=== PATIENT | female | born 1995 | race Caucasian/White ===

== ENCOUNTER 2017-01-11 11:59 | Emergency (ER) | payer OTHER ==
[2017-01-11] MEDS ORDERED: ACETAMINOPHEN TAB 500 MG TAB PO STA (14:01)
[2017-01-11] MEDS ORDERED: HYDROmorphone 1 MG/ML 1 ML SYRINGE IM STA ×2 (14:01→15:20)
[2017-01-11 14:33] VITALS: RESP 18
[2017-01-11 15:00] LABS: Appearance,Urine Cloudy (Clear); Bacteria,Urine Few /hpf; Bilirubin,Urine 1+ (Negative); Glucose,Urine (UA) Negative (Negative); Ketones,Urine 1+ (Negative); Leukocyte Esterase,Urine Negative (Negative); Mucus,Urine Moderate /hpf; Nitrite,Urine Negative (Negative); PH, Urine 5.5 (5.0-8.0); Particle Count 16743; Protein,Urine 1+ (Negative); Specific Gravity,Urine 1.022 (1.001-1.035); Squamous Epithelial Cell,Urine 15 /hpf (0-4); UA Billing (MACRO vs. MICRO) MICRO; WBC,Urine 6 /hpf (0-5)
[2017-01-11] MEDS ORDERED: SULFAMETH-TMP DS STARTER PACK 2 TAB BTL PO STA (15:24)
--- NOTE | 2017-01-11 15:34 | ED ---
Skin/Abscess/FB HPI - General Chief complaint: Skin/Abscess/Foreign Body Stated complaint: Cyst on Tailbone/Infection Time Seen by Provider: 01/11/17 14:01 Source: patient, RN notes reviewed Mode of arrival: wheelchair Limitations: no limitations - History of Present Illness Initial comments: Patient is a 21 year old female with an abscess on her tailbone for approximately 10 days. She reports she was seen at [facility] 5 days ago and placed on Keflex for the infection, no drainage done at that time. Patient reports that the pain has been worsening and seems that the infection is spreading. She reports she cannot sit down due to the pain and pressure. She reports it started at 2 firm cysts, and now has progressed to a large abscess. She has been doing epsom salt baths. She states that she has felt chilled. She states that she also has noticed some blood in her urine which she believes is unrelated. She denies vomiting, nausea, chest pain shortness of breath. She has never had a history of MRSA or pilionidal cyst before. Patient was crying due to pain while interviewing and examining the patient. - Related Data Previous Rx's Medication Instructions Recorded Ibuprofen [Motrin] 600 mg PO Q6HR PRN #40 day 09/06/16 Metoclopramide HCl [Reglan] 10 mg PO Q6HR PRN #5 day 09/06/16 HYDROcodone/APAP 10-325MG [[place] 1 tab PO Q6H PRN #20 tab 01/11/17 10-325] Ondansetron Odt [Zofran Odt] 4 mg PO Q12HR PRN #12 tab 01/11/17 Sulfamethox-Tmp 800-160Mg [Bactrim 2 tab PO Q12HR 14 Days 01/11/17 DS 800-160 mg] Allergies Allergy/AdvReac Type Severity Reaction Status Date / Time pineapple Allergy Anaphylaxis Verified 01/11/17 12:25 Review of Systems ROS Statement: Those systems with pertinent positive or pertinent negative responses have been documented in the HPI. ROS Other: All systems not noted in ROS Statement are negative. Past Medical History Past Medical History: Asthma History of Any Multi-Drug Resistant Organisms: None Reported Past Surgical History: Adenoidectomy, Ear Surgery, Tonsillectomy Past Psychological History: No Psychological Hx Reported Smoking Status: Former smoker Past Alcohol Use History: None Reported Past Drug Use History: Marijuana - Past Family History Mother Family Medical History: Asthma (Mother's 51-year-old has history of asthma) Additional Family Medical History / Comment(s): cholecystectomy Father Family Medical History: No Reported History (Father is 52-year-old has no major medical problems) Brother(s) Family Medical History: No Reported History (Patient has one brother no major medical problems) Sister(s) Family Medical History: Unable to Obtain (Patient has 2 sisters does not know anything about them.) General Exam - General Exam Comments Initial Comments: 21 year old female in moderate distress and discomfort. Limitations: no limitations General appearance: alert, in no apparent distress Head exam: Present: atraumatic, normocephalic, normal inspection Eye exam: Present: normal appearance, PERRL, EOMI. Absent: scleral icterus, conjunctival injection, periorbital swelling ENT exam: Present: normal exam, mucous membranes moist Neck exam: Present: normal inspection. Absent: tenderness, meningismus, lymphadenopathy Respiratory exam: Present: normal lung sounds bilaterally. Absent: respiratory distress, wheezes, rales, rhonchi, stridor Cardiovascular Exam: Present: regular rate, normal rhythm, normal heart sounds. Absent: systolic murmur, diastolic murmur, rubs, gallop, clicks GI/Abdominal exam: Present: soft, normal bowel sounds. Absent: distended, tenderness, guarding, rebound, rigid Extremities exam: Present: normal inspection, full ROM, normal capillary refill. Absent: tenderness, pedal edema, joint swelling, calf tenderness Back exam: Present: normal inspection, other (evidece of pilionidal abscess meauring 6cm by 6cm. ) Neurological exam: Present: alert, oriented X3, CN II-XII intact Psychiatric exam: Present: normal affect, normal mood Skin exam: Present: warm, dry, intact, normal color. Absent: rash Course Vital Signs 01/11/17 01/11/17 01/11/17 12:21 14:32 15:52 Temperature 99.2 F 99.5 F 98.8 F Pulse Rate 107 H 93 95 Respiratory 20 18 18 Rate Blood Pressure 134/69 116/76 101/64 O2 Sat by Pulse 99 99 96 Oximetry Procedures - Incision & Drainage Consent Obtained: verbal consent Time Out Performed?: Yes Site: back (pilionidal cyst above gluteal cleft. ) Size (cm): 6 Anesthetic Used: benzocaine 0.25% Amount (mLs): 10 I&D Cleaning Method: Betadine Sterile Field Used?: Yes Scalpel Used: #11 I&D Drainage Obtained: Pus (20-30cc of puss), Blood Packing: Iodoform Culture Obtained?: Yes Complications: pain Patient Tolerated Procedure: well (patient had significant pain with removing pus, but tolerated procedure well. ), no complications Medical Decision Making - Medical Decision Making Patient is a 21 year old female with an abscess on her tailbone for approximately 10 days. She reports she was seen at [facility] 5 days ago and placed on Keflex for the infection, no drainage done at that time. Patient reports that the pain has been worsening and seems that the infection is spreading. She reports she cannot sit down due to the pain and pressure. She reports it started at 2 firm cysts, and now has progressed to a large abscess. Patient was crying due to pain, patient given 1mg dilaudid IM. Patient only laying on stomach as she cannot sit down due to pain. Abscess measures 6cm by 6cm, it was cleaned and 2cm incision placed to drain infection. Significant amount of green and brown pus came from the area. Wound was explored and 1 inch iodoform packing was placed. Wound culture obtained. Patient will be swiched from keflex to bactrim DS 2 pills, BID for 2 weeks. Patient reports she has a follow up with a business development specialist on Monday[facility] The abscess and infection could not wait until then. Patient advised to follow up with PCP to recheck wound and change packing in 2 days. I advised to return to the emergency department for wound recheck in 2 days, and repack if PCP cannot. Patient understands return parameters and treatment plan discussed. Patient also given Rx for [place] for pain, and Zofran for nausea medication with the pain medicine. - Lab Data Lab Results 01/11/17 Range/Units 14:37 Urine Color [place] Urine Appearance Cloudy H (Clear) Urine pH 5.5 (5.0-8.0) Ur Specific [place] 1.022 (1.001-1.035) Urine Protein 1+ H (Negative) Urine Glucose (UA) Negative (Negative) Urine Ketones 1+ H (Negative) Urine Blood Negative (Negative) Urine Nitrite Negative (Negative) Urine Bilirubin 1+ H (Negative) Urine Urobilinogen 6.0 (<2.0) mg/dL Ur Leukocyte Esterase Negative (Negative) Urine WBC 6 H (0-5) /hpf Ur Squamous Epith Cells 15 H (0-4) /hpf Urine Bacteria Few H (None) /hpf Urine Mucus Moderate H (None) /hpf Disposition Clinical Impression: Pilonidal cyst with abscess Disposition: HOME SELF-CARE Condition: Good Instructions: Abscess Incision and Drainage (ED) Additional Instructions: Patient must follow-up with primary care provider in 2 days to have the packing re-changed. Take antibiotics as prescribed. Patient also advised to take pain medication as prescribed. Patient is to return to emergency department if any alarming signs or symptoms occur. is still advised to follow-up with the business development specialist on Monday. Prescriptions: HYDROcodone/APAP 10-325MG [[place] 10-325] 1 tab PO Q6H PRN #20 tab PRN Reason: Pain Ondansetron Odt [Zofran Odt] 4 mg PO Q12HR PRN #12 tab PRN Reason: Nausea Sulfamethox-Tmp 800-160Mg [Bactrim DS 800-160 mg] 2 tab PO Q12HR 14 Days Referrals: Geo De Oliveira MD [Primary Care Provider] - 1-2 days Time of Disposition: 15:35
[2017-01-11 15:52] VITALS: BP 101/64; PULSE 95; TEMP 98.8
== END 2017-01-11 16:01 | disposition home or self-care (01) ==
LOC: EC 11:59
DX: L05.01 Pilonidal cyst with abscess (principal); R31.9 Hematuria, unspecified; Z87.891 Personal history of nicotine dependence; Z91.018 Allergy to other foods
CPT/HCPCS: 99283 ×2; 96372 ×3; 10080 ×2; 81001; 87070; 87205; 87077; 87186; J1170

== ENCOUNTER 2017-01-13 13:07 | Emergency (ER) | payer OTHER ==
[2017-01-13 13:16] VITALS: BP 119/70; PULSE 109; RESP 20; TEMP 97.8
--- NOTE | 2017-01-13 13:51 | ED ---
Recheck HPI - General Chief Complaint: Recheck/Abnormal Lab/Rx Stated Complaint: needs gauze changed Time Seen by Provider: 01/13/17 13:11 Source: patient, RN notes reviewed, old records reviewed Mode of arrival: ambulatory Limitations: no limitations - History of Present Illness Initial Comments: Patient is a 21-year-old female history of pilonidal abscess presents emergency department needing her wound change. As the provider that due to the initial incision and drainage for the wound. At that time there was a significant amount of pus and the wound was packed. Patient reports that after taking the 2 days of antibiotics her swelling and the redness is decreased significantly. She also reports that the pain is somewhat subsided. She is taking the prescribed pain medications from earlier. Patient reports that she does have a follow-up appointment on Monday with a surgical services coordinator. Denies any fever or chills. She reports that she is able to sit down at this time.Patient denies any recent fever, chills, shortness of breath, chest pain, back pain, abdominal pain, nausea vomiting, numbness or tingling, dysuria or hematuria, constipation or diarrhea, headaches or visual changes, or any other current symptoms - Related Data Previous Rx's Medication Instructions Recorded Ibuprofen [Motrin] 600 mg PO Q6HR PRN #40 day 09/06/16 Metoclopramide HCl [Reglan] 10 mg PO Q6HR PRN #5 day 09/06/16 HYDROcodone/APAP 10-325MG [[place] 1 tab PO Q6H PRN #20 tab 01/11/17 10-325] Ondansetron Odt [Zofran Odt] 4 mg PO Q12HR PRN #12 tab 01/11/17 Sulfamethox-Tmp 800-160Mg [Bactrim 2 tab PO Q12HR 14 Days 01/11/17 DS 800-160 mg] Allergies Allergy/AdvReac Type Severity Reaction Status Date / Time pineapple Allergy Anaphylaxis Verified 01/13/17 13:19 Review of Systems ROS Statement: Those systems with pertinent positive or pertinent negative responses have been documented in the HPI. ROS Other: All systems not noted in ROS Statement are negative. Past Medical History Past Medical History: Asthma History of Any Multi-Drug Resistant Organisms: None Reported Past Surgical History: Adenoidectomy, Ear Surgery, Tonsillectomy Past Psychological History: No Psychological Hx Reported Smoking Status: Former smoker Past Alcohol Use History: None Reported Past Drug Use History: Marijuana - Past Family History Mother Family Medical History: Asthma (Mother's 51-year-old has history of asthma) Additional Family Medical History / Comment(s): cholecystectomy Father Family Medical History: No Reported History (Father is 52-year-old has no major medical problems) Brother(s) Family Medical History: No Reported History (Patient has one brother no major medical problems) Sister(s) Family Medical History: Unable to Obtain (Patient has 2 sisters does not know anything about them.) General Exam - General Exam Comments Initial Comments: Patient is a pleasant 21-year-old female. No acute distress. Limitations: no limitations General appearance: alert, in no apparent distress Head exam: Present: atraumatic, normocephalic, normal inspection Eye exam: Present: normal appearance, PERRL, EOMI. Absent: scleral icterus, conjunctival injection, periorbital swelling ENT exam: Present: normal exam, mucous membranes moist Neck exam: Present: normal inspection. Absent: tenderness, meningismus, lymphadenopathy Respiratory exam: Present: normal lung sounds bilaterally. Absent: respiratory distress, wheezes, rales, rhonchi, stridor Cardiovascular Exam: Present: regular rate, normal rhythm, normal heart sounds. Absent: systolic murmur, diastolic murmur, rubs, gallop, clicks GI/Abdominal exam: Present: soft, normal bowel sounds. Absent: distended, tenderness, guarding, rebound, rigid Extremities exam: Present: normal inspection, full ROM, normal capillary refill. Absent: tenderness, pedal edema, joint swelling, calf tenderness Back exam: Present: normal inspection, other (Plan I will abscess with evidence of recent drainage with packing instilled. The area of erythema has decreased significantly from 2 days ago.) Neurological exam: Present: alert, oriented X3, CN II-XII intact Psychiatric exam: Present: normal affect, normal mood Skin exam: Present: warm, dry, intact, normal color. Absent: rash Course Vital Signs 01/13/17 13:14 Temperature 97.8 F Pulse Rate 109 H Respiratory 20 Rate Blood Pressure 119/70 O2 Sat by Pulse 96 Oximetry Medical Decision Making - Medical Decision Making Patient is a 21-year-old female with chief complaint of needing her packing change in her pill nidal abscess. The packing was removed and the area was flushed with normal saline. The wound does appear much better than the initial visit. The wound is repacked with 1 inch iodoform. I had a lengthy discussion that she has to follow-up with the surgical services coordinator that she may need to have surgery to have the area did Monday. Patient is continuing her antibiotics and pain medications as prescribed. Patient understands treatment plan will comply. Return parameters were discussed. Disposition Clinical Impression: Pilonidal cyst with abscess, Encounter for wound re-check Disposition: HOME SELF-CARE Condition: Good Instructions: Abscess Incision and Drainage (ED) Additional Instructions: Patient instructed to follow-up with primary care provider. Also needs to follow-up with the surgical services coordinator on Monday for packing change. Return to the emergency department if any worsening signs or symptoms occur.. Patient is encouraged to take pain medication as needed as well as finishing her antibiotic. Referrals: Geo De Oliveira MD [Primary Care Provider] - 1-2 days Time of Disposition: 13:50
== END 2017-01-13 14:05 | disposition home or self-care (01) ==
LOC: EC 13:07
DX: L05.01 Pilonidal cyst with abscess (principal); Z48.01 Encounter for change or removal of surgical wound dressing; Z91.018 Allergy to other foods
CPT/HCPCS: 99283

== ENCOUNTER 2017-04-17 08:38 | Emergency (ER) | payer OTHER ==
[2017-04-17 08:43] VITALS: BP 120/70; TEMP 99.5
--- NOTE | 2017-04-17 08:53 | ED ---
Wound/Laceration HPI - General Chief Complaint: Wound/Laceration Stated Complaint: post op incision open Time Seen by Provider: 04/17/17 08:44 Source: patient, RN notes reviewed Mode of arrival: ambulatory Limitations: no limitations - History of Present Illness Initial Comments: 22-year-old female presents emergency Department with chief complaint of opening over her surgical site. Patient states she had surgery one month ago a Dr. Quinones for pilonaodal cyst. Patient states over the last week she's noticed increased pressure some discomfort. She felt some drainage in which her mother looked and saw that her incision had opened up and the lower half and is draining purulent pus. Patient denies fever or chills. She does complain of pain in that area which is similar to her history. Patient has nausea vomiting diarrhea constipation. Denies chance . - Related Data Previous Rx's Medication Instructions Recorded Ibuprofen [Motrin] 600 mg PO Q6HR PRN #40 day 09/06/16 Metoclopramide HCl [Reglan] 10 mg PO Q6HR PRN #5 day 09/06/16 HYDROcodone/APAP 10-325MG [[place] 1 tab PO Q6H PRN #20 tab 01/11/17 10-325] Ondansetron Odt [Zofran Odt] 4 mg PO Q12HR PRN #12 tab 01/11/17 Sulfamethox-Tmp 800-160Mg [Bactrim 2 tab PO Q12HR 14 Days 01/11/17 DS 800-160 mg] Hydrocodone/Acetaminophen [[place] 1 tab PO Q6HR PRN #20 tab 04/17/17 5-325] Sulfamethox-Tmp 800-160Mg [Bactrim 2 each PO Q12HR #56 tab 04/17/17 Ds] Allergies Allergy/AdvReac Type Severity Reaction Status Date / Time pineapple Allergy Anaphylaxis Verified 01/13/17 13:19 Review of Systems ROS Statement: Those systems with pertinent positive or pertinent negative responses have been documented in the HPI. ROS Other: All systems not noted in ROS Statement are negative. Past Medical History Past Medical History: Asthma History of Any Multi-Drug Resistant Organisms: None Reported Past Surgical History: Adenoidectomy, Ear Surgery, Tonsillectomy Past Psychological History: No Psychological Hx Reported Smoking Status: Former smoker Past Alcohol Use History: None Reported Past Drug Use History: Marijuana - Past Family History Mother Family Medical History: Asthma (Mother's 51-year-old has history of asthma) Additional Family Medical History / Comment(s): cholecystectomy Father Family Medical History: No Reported History (Father is 52-year-old has no major medical problems) Brother(s) Family Medical History: No Reported History (Patient has one brother no major medical problems) Sister(s) Family Medical History: Unable to Obtain (Patient has 2 sisters does not know anything about them.) General Exam Limitations: no limitations General appearance: alert, in no apparent distress Respiratory exam: Present: normal lung sounds bilaterally. Absent: respiratory distress, wheezes, rales, rhonchi, stridor Cardiovascular Exam: Present: regular rate, normal rhythm, normal heart sounds. Absent: systolic murmur, diastolic murmur, rubs, gallop, clicks GI/Abdominal exam: Present: soft, normal bowel sounds. Absent: distended, tenderness, guarding, rebound, rigid Skin exam: Present: other (The buttocks region just superior to the cleft there is an old incision noted with dehiscence in the lower half and purulent drainage , wound culture was taken) Course Vital Signs 04/17/17 08:40 Temperature 99.5 F Pulse Rate 120 H Respiratory 20 Rate Blood Pressure 120/70 O2 Sat by Pulse 97 Oximetry Medical Decision Making - Medical Decision Making 22-year-old female presented for pain and nurse's incision opening. This appears to be an infection with purulent drainage at this time. This was cultured and she'll be placed on Bactrim. Patient is advised that she is contact Dr. Quinones her surgeon today and follow-up with her. Return parameters were discussed. Disposition Clinical Impression: Infected wound, Pilonidal abscess Disposition: HOME SELF-CARE Condition: Stable Instructions: Abscess (ED) Additional Instructions: Please return to the Emergency Department if symptoms worsen or any other concerns. Prescriptions: Hydrocodone/Acetaminophen [[place] 5-325] 1 tab PO Q6HR PRN #20 tab PRN Reason: Pain Sulfamethox-Tmp 800-160Mg [Bactrim Ds] 2 each PO Q12HR #56 tab Referrals: Geo De Oliveira MD [Primary Care Provider] - 1-2 days Time of Disposition: 08:53
[2017-04-17 09:06] VITALS: PULSE 90; RESP 17
== END 2017-04-17 09:03 | disposition home or self-care (01) ==
LOC: EC 08:38
DX: L05.01 Pilonidal cyst with abscess (principal); T81.31XA Disruption of external operation (surgical) wound, not elsewhere classified, initial encounter; K59.00 Constipation, unspecified; R11.2 Nausea with vomiting, unspecified; R19.7 Diarrhea, unspecified; Z87.891 Personal history of nicotine dependence; Z91.018 Allergy to other foods; Y83.8 Other surgical procedures as the cause of abnormal reaction of the patient, or of later complication, without mention of misadventure at the time of the procedure
CPT/HCPCS: 87070; 87077; 87186; 87205; 99283

== ENCOUNTER 2017-08-13 10:14 | Emergency (ER) | payer OTHER ==
--- NOTE | 2017-08-13 10:53 | ED ---
General Adult HPI - General Chief complaint: Urogenital Stated complaint: poss uti Time Seen by Provider: 08/13/17 10:36 Source: patient, RN notes reviewed Mode of arrival: ambulatory Limitations: no limitations - History of Present Illness Initial comments: Patient is a 22-year-old female who presents emergency room today with a chief complaint of possible urinary tract infection. Patient does admit that she has had symptoms of dysuria over the last 3 weeks. She does admit to increased frequency with pressure and pain after voiding. Patient does admit that she's tried [id number] Azo pills along with cranberry juice. She states she talked was doing a little better. She denies any other symptoms or complaints. Denies any vaginal bleeding or discharge. Patient denies any recent fever, chills, shortness of breath, chest pain, back pain, abdominal pain, nausea or vomiting, numbness or tingling, hematuria, constipation or diarrhea, headaches or visual changes, or any other complaints. - Related Data Previous Rx's Medication Instructions Recorded Albuterol Inhaler [Ventolin Hfa 1 - 2 puff INHALATION Q6HR PRN #1 07/24/17 Inhaler] inhaler Azithromycin 250 mg PO DAILY #6 tab 07/24/17 methylPREDNISolone Dose Pack 4 mg PO DIRECTED #21 package 07/24/17 [Medrol Dose Pack] Famotidine [Pepcid] 20 mg PO BID #20 tablet 08/13/17 Nitrofurantoin Monohyd/M-Cryst 100 mg PO Q12HR #14 cap 08/13/17 [Macrobid] Allergies Allergy/AdvReac Type Severity Reaction Status Date / Time amoxicillin Allergy Rash/Hives Verified 08/13/17 10:33 pineapple Allergy Anaphylaxis Verified 07/24/17 22:09 Review of Systems ROS Statement: Those systems with pertinent positive or pertinent negative responses have been documented in the HPI. ROS Other: All systems not noted in ROS Statement are negative. Past Medical History Past Medical History: Asthma History of Any Multi-Drug Resistant Organisms: None Reported Past Surgical History: Adenoidectomy, Ear Surgery, Tonsillectomy Past Psychological History: Anxiety, Depression Smoking Status: Current every day smoker Past Alcohol Use History: Occasional Past Drug Use History: Marijuana - Past Family History Mother Family Medical History: Asthma (Mother's 51-year-old has history of asthma) Additional Family Medical History / Comment(s): cholecystectomy Father Family Medical History: No Reported History (Father is 52-year-old has no major medical problems) Brother(s) Family Medical History: No Reported History (Patient has one brother no major medical problems) Sister(s) Family Medical History: Unable to Obtain (Patient has 2 sisters does not know anything about them.) General Exam - General Exam Comments Initial Comments: General: The patient is awake and alert, in no distress, and does not appear acutely ill. Eye: Pupils are equal, round and reactive to light, extra-ocular movements are intact. No nystagmus. There is normal conjunctiva bilaterally. No signs of icterus. Ears, nose, mouth and throat: There are moist mucous membranes and no oral lesions. Neck: The neck is supple, there is no tenderness or JVD. Cardiovascular: There is a regular rate and rhythm. No murmur, rub or gallop is appreciated. Respiratory: Lungs are clear to auscultation, respirations are non-labored, breath sounds are equal. No wheezes, stridor, rales, or rhonchi. Gastrointestinal: No appearance the abdomen. Normal pulse. Soft on palpation. Patient does have tenderness suprapubic over the bladder. No rebound tenderness. No guarding. No CVA tenderness. Musculoskeletal: Normal ROM, no tenderness. Strength 5/5. Sensation intact. Pulses equal bilaterally 2+. Neurological: A&O x 3. CN II-XII intact, There are no obvious motor or sensory deficits. Coordination appears grossly intact. Speech is normal. Skin: Skin is warm and dry and no rashes or lesions are noted. Psychiatric: Cooperative, appropriate mood & affect, normal judgment. Limitations: no limitations Course Vital Signs 08/13/17 10:29 Temperature 98.9 F Pulse Rate 94 Respiratory 18 Rate Blood Pressure 141/92 O2 Sat by Pulse 97 Oximetry Medical Decision Making - Medical Decision Making Patient reexamined at this time shows no signs of distress. Patient's urinalysis reviewed and does show evidence for urinary tract infection. Patient will be started on Macrobid also given Pepcid as she states that she believes this antibiotic is upset her stomach in the past. Patient is unresponsive family doctor. Urine cultures pending. Advised return for any other concerns. - Lab Data Lab Results 08/13/17 08/13/17 Range/Units 11:28 11:28 Urine Color [place] Urine Appearance Cloudy H (Clear) Urine pH 5.5 (5.0-8.0) Ur Specific [place] 1.012 (1.001-1.035) Urine Protein 1+ H (Negative) Urine Glucose (UA) Negative (Negative) Urine Ketones Negative (Negative) Urine Blood Large H (Negative) Urine Nitrite Negative (Negative) Urine Bilirubin Negative (Negative) Urine Urobilinogen <2.0 (<2.0) mg/dL Ur Leukocyte Esterase Large H (Negative) Urine RBC 56 H (0-5) /hpf Urine WBC 76 H (0-5) /hpf Urine WBC Clumps Few H (None) /hpf Ur Squamous Epith Cells 1 (0-4) /hpf Urine Bacteria Rare H (None) /hpf Urine Mucus Rare H (None) /hpf Urine HCG, Qual Not Detected (Not Detectd) Disposition Clinical Impression: Urinary tract infection Disposition: HOME SELF-CARE Condition: Good Instructions: Urinary Tract Infection in Women (ED) Additional Instructions: Please use medication as discussed. Please follow-up with family doctor in the next 2 days of symptoms have not improved. Please return to emergency room if the symptoms increase or worsen or for any other concerns. Prescriptions: Famotidine [Pepcid] 20 mg PO BID #20 tablet Nitrofurantoin Monohyd/M-Cryst [Macrobid] 100 mg PO Q12HR #14 cap Referrals: Geo De Oliveira MD [Primary Care Provider] - 1-2 days Time of Disposition: 12:27
[2017-08-13 11:55] LABS: Appearance,Urine Cloudy (Clear); Bacteria,Urine Rare /hpf; Bilirubin,Urine Negative (Negative); Glucose,Urine (UA) Negative (Negative); Ketones,Urine Negative (Negative); Leukocyte Esterase,Urine Large (Negative); Mucus,Urine Rare /hpf; Nitrite,Urine Negative (Negative); PH, Urine 5.5 (5.0-8.0); Particle Count 14786; Protein,Urine 1+ (Negative); RBC,Urine 56 /hpf (0-5); Specific Gravity,Urine 1.012 (1.001-1.035); Squamous Epithelial Cell,Urine 1 /hpf (0-4); UA Billing (MACRO vs. MICRO) MICRO; Urobilinogen,Urine <2.0 mg/dL (<2.0); WBC,Urine 76 /hpf (0-5)
[2017-08-13 12:36] VITALS: BP 120/70; PULSE 83; RESP 16; TEMP 98
== END 2017-08-13 12:35 | disposition home or self-care (01) ==
LOC: EC 10:14
DX: N39.0 Urinary tract infection, site not specified (principal); F17.200 Nicotine dependence, unspecified, uncomplicated; Z88.0 Allergy status to penicillin; Z91.018 Allergy to other foods
CPT/HCPCS: 81001; 81025; 87077; 87086; 87186; 99283

== ENCOUNTER 2017-09-12 16:52 | Emergency (ER) | payer OTHER ==
[2017-09-12 17:08] VITALS: RESP 16
[2017-09-12] MEDS ORDERED: cefTRIAXone 250 MG VIAL IM STA (17:17)
--- NOTE | 2017-09-12 17:20 | ED ---
Female Urogenital HPI - General Chief complaint: Urogenital Stated complaint: Urogenital Time Seen by Provider: 09/12/17 17:10 Source: patient Mode of arrival: ambulatory Limitations: no limitations - History of Present Illness Initial comments: This 22-year-old female presents with a complaint of some vaginal itching and irritation. She states that it is been going on for approximately 4 days. She also had some dysuria 2 days ago but then soaked tampon and some coconut oil and stuck it in her vagina and this seemed to help her dysuria. She denies any abdominal or flank pain. She denies any fevers or chills. She denies any known vaginal discharge. She currently is on her period. She does relate that she has had some unprotected intercourse approximately one week ago and states that she has heard that this partner have been sleeping around. Didn't severity is mild. No other complaints or modifying factors. - Related Data Home Medications Medication Instructions Recorded Confirmed Albuterol Inhaler [Ventolin Hfa 1 - 2 puff INHALATION RT-Q6H PRN 08/13/17 Inhaler] Previous Rx's Medication Instructions Recorded Doxycycline Hyclate [Vibramycin] 100 mg PO BID #14 cap 09/12/17 metroNIDAZOLE [Flagyl] 500 mg PO BID #14 tab 09/12/17 Allergies Allergy/AdvReac Type Severity Reaction Status Date / Time amoxicillin Allergy Rash/Hives Verified 09/12/17 17:59 Penicillins Allergy Rash/Hives Verified 09/12/17 17:59 pineapple Allergy Anaphylaxis Verified 09/12/17 17:59 Review of Systems ROS Statement: Those systems with pertinent positive or pertinent negative responses have been documented in the HPI. ROS Other: All systems not noted in ROS Statement are negative. Past Medical History Past Medical History: Asthma History of Any Multi-Drug Resistant Organisms: None Reported Past Surgical History: Adenoidectomy, Ear Surgery, Tonsillectomy Past Psychological History: Anxiety, Depression Smoking Status: Current every day smoker Past Alcohol Use History: Occasional Past Drug Use History: Marijuana - Past Family History Mother Family Medical History: Asthma (Mother's 51-year-old has history of asthma) Additional Family Medical History / Comment(s): cholecystectomy Father Family Medical History: No Reported History (Father is 52-year-old has no major medical problems) Brother(s) Family Medical History: No Reported History (Patient has one brother no major medical problems) Sister(s) Family Medical History: Unable to Obtain (Patient has 2 sisters does not know anything about them.) General Exam Limitations: no limitations General appearance: alert, in no apparent distress GI/Abdominal exam: Present: soft. Absent: distended, tenderness External exam: Present: normal external exam Speculum exam: Present: normal speculum exam, vaginal bleeding. Absent: vaginal discharge By manual exam: Absent: normal by manual exam, cervical motion tenderness, adnexal tenderness Back exam: Absent: CVA tenderness (R), CVA tenderness (L) Psychiatric exam: Present: normal affect, normal mood Course Vital Signs 09/12/17 17:06 Temperature 98.2 F Pulse Rate 79 Respiratory 16 Rate Blood Pressure 133/62 O2 Sat by Pulse 97 Oximetry Medical Decision Making - Medical Decision Making The patient was seen and examined. All diagnostics were reviewed. The urine does show evidence of hematuria but the patient is currently on period. Is no definite evidence of urinary tract infection. Pelvic exam is completed and cultures are taken and are pending. She does receive some Rocephin IM be placed on additional antibiotics empirically treat possibility of any STDs. Is felt as though she should follow-up closely with her primary doctor for review of the culture results. She understands and agrees and leaves no distress. - Lab Data Lab Results 09/12/17 09/12/17 Range/Units 17:33 17:33 Urine Color Yellow Urine Appearance Cloudy H (Clear) Urine pH 6.5 (5.0-8.0) Ur Specific [place] 1.021 (1.001-1.035) Urine Protein Trace H (Negative) Urine Glucose (UA) Negative (Negative) Urine Ketones Negative (Negative) Urine Blood Large H (Negative) Urine Nitrite Negative (Negative) Urine Bilirubin Negative (Negative) Urine Urobilinogen <2.0 (<2.0) mg/dL Ur Leukocyte Esterase Small H (Negative) Urine RBC 150 H (0-5) /hpf Urine WBC 2 (0-5) /hpf Ur Squamous Epith Cells 5 H (0-4) /hpf Urine Bacteria Rare H (None) /hpf Urine Mucus Rare H (None) /hpf Urine Yeast (Budding) Occasional H (None) /hpf Urine HCG, Qual Not Detected (Not Detectd) Disposition Clinical Impression: Vaginitis Disposition: HOME SELF-CARE Condition: Good Instructions: Vaginitis (ED) Prescriptions: Doxycycline Hyclate [Vibramycin] 100 mg PO BID #14 cap metroNIDAZOLE [Flagyl] 500 mg PO BID #14 tab Referrals: Geo De Oliveira MD [Primary Care Provider] - 09/15/17 Time of Disposition: 18:18
[2017-09-12 17:47] LABS: Appearance,Urine Cloudy (Clear); Bacteria,Urine Rare /hpf; Bilirubin,Urine Negative (Negative); Glucose,Urine (UA) Negative (Negative); Ketones,Urine Negative (Negative); Leukocyte Esterase,Urine Small (Negative); Mucus,Urine Rare /hpf; Nitrite,Urine Negative (Negative); PH, Urine 6.5 (5.0-8.0); Particle Count 5586; Protein,Urine Trace (Negative); RBC,Urine 150 /hpf (0-5); Specific Gravity,Urine 1.021 (1.001-1.035); Squamous Epithelial Cell,Urine 5 /hpf (0-4); UA Billing (MACRO vs. MICRO) MICRO; Urobilinogen,Urine <2.0 mg/dL (<2.0); WBC,Urine 2 /hpf (0-5)
[2017-09-12 18:43] VITALS: BP 128/63; PULSE 83; TEMP 97.8
== END 2017-09-12 18:25 | disposition home or self-care (01) ==
LOC: EC 16:52
DX: N76.0 Acute vaginitis (principal); F17.200 Nicotine dependence, unspecified, uncomplicated; Z88.0 Allergy status to penicillin; Z91.018 Allergy to other foods
CPT/HCPCS: 99283; 96372; 87591; 87491; 81001; 81025; 87808; 87070; J0696; 87205

== ENCOUNTER 2017-09-30 12:44 | Emergency (ER) | payer OTHER ==
--- NOTE | 2017-09-30 13:41 | ED ---
General Adult HPI - General Chief complaint: Urogenital Stated complaint: vaginal irritation Time Seen by Provider: 09/30/17 13:17 Source: patient, RN notes reviewed Mode of arrival: ambulatory Limitations: no limitations - History of Present Illness Initial comments: Patient 22-year-old female who presents emergency room today with chief complaint of some vaginal discharge. She does admit that she was seen here in the emergency room recently diagnosed with Trichomonas. She states that she was given antibiotics. She states she was unable to afford one of the antibiotics that she was given. She states that she is still having the discharge drainage. She states there is some itching. She states she follow- up the family doctor. She states symptoms are not improving. She states she's not had any new sexual contacts since. She states that she has talked about her partner getting treated. Patient denies any recent fever, chills, shortness of breath, chest pain, back pain, abdominal pain, nausea or vomiting, numbness or tingling, constipation or diarrhea, headaches or visual changes, or any other complaints. - Related Data Home Medications Medication Instructions Recorded Confirmed Albuterol Inhaler [Ventolin Hfa 1 - 2 puff INHALATION RT-Q6H PRN 08/13/17 Inhaler] Ibuprofen [Motrin] 400 mg PO Q6HR PRN 09/30/17 09/30/17 Allergies Allergy/AdvReac Type Severity Reaction Status Date / Time amoxicillin Allergy Rash/Hives Verified 09/30/17 13:13 Penicillins Allergy Rash/Hives Verified 09/30/17 13:13 pineapple Allergy Anaphylaxis Verified 09/30/17 13:13 Review of Systems ROS Statement: Those systems with pertinent positive or pertinent negative responses have been documented in the HPI. ROS Other: All systems not noted in ROS Statement are negative. Past Medical History Past Medical History: Asthma History of Any Multi-Drug Resistant Organisms: None Reported Past Surgical History: Adenoidectomy, Ear Surgery, Tonsillectomy Past Psychological History: Anxiety, Depression Smoking Status: Current every day smoker Past Alcohol Use History: Occasional Past Drug Use History: Marijuana - Past Family History Mother Family Medical History: Asthma (Mother's 51-year-old has history of asthma) Additional Family Medical History / Comment(s): cholecystectomy Father Family Medical History: No Reported History (Father is 52-year-old has no major medical problems) Brother(s) Family Medical History: No Reported History (Patient has one brother no major medical problems) Sister(s) Family Medical History: Unable to Obtain (Patient has 2 sisters does not know anything about them.) General Exam - General Exam Comments Initial Comments: General: The patient is awake and alert, in no distress, and does not appear acutely ill. Eye: Pupils are equal, round and reactive to light, extra-ocular movements are intact. No nystagmus. There is normal conjunctiva bilaterally. No signs of icterus. Ears, nose, mouth and throat: There are moist mucous membranes and no oral lesions. Neck: The neck is supple, there is no tenderness or JVD. Cardiovascular: There is a regular rate and rhythm. No murmur, rub or gallop is appreciated. Respiratory: Lungs are clear to auscultation, respirations are non-labored, breath sounds are equal. No wheezes, stridor, rales, or rhonchi. Gastrointestinal: Soft, non-distended, non-tender abdomen without masses or organomegaly noted. There is no rebound or guarding present. No CVA tenderness. Bowel sounds are unremarkable. Musculoskeletal: Normal ROM, no tenderness. Strength 5/5. Sensation intact. Pulses equal bilaterally 2+. Neurological: A&O x 3. CN II-XII intact, There are no obvious motor or sensory deficits. Coordination appears grossly intact. Speech is normal. Skin: Skin is warm and dry and no rashes or lesions are noted. Psychiatric: Cooperative, appropriate mood & affect, normal judgment. Limitations: no limitations Course Vital Signs 09/30/17 12:45 Temperature 98.7 F Pulse Rate 112 H Respiratory 18 Rate Blood Pressure 142/91 O2 Sat by Pulse 96 Oximetry Medical Decision Making - Medical Decision Making Case discussed in detail with attending physician Dr. Buenrostro. Patient reexamined at this time shows no signs of distress resting comfortably. Patient 's recent visit reviewed. Showed positive. Patient was treated with Flagyl also doxycycline. Given shot of Rocephin here in emergency room. Patient's vaginal culture was also removed showing positive for Cheli albicans along with strep. Strep is likely normal for her. Patient symptoms are consistent with a use infection given dose of Diflucan here in emergency room. She will be discharged home she is advised follow-up with her family doctor/CANDY BUTCHER. She is advised to return for any other concerns for - Lab Data Lab Results 09/30/17 09/30/17 Range/Units 13:30 13:30 Urine Color Yellow Urine Appearance Cloudy H (Clear) Urine pH 6.0 (5.0-8.0) Ur Specific [place] 1.018 (1.001-1.035) Urine Protein Trace H (Negative) Urine Glucose (UA) Negative (Negative) Urine Ketones Negative (Negative) Urine Blood Negative (Negative) Urine Nitrite Negative (Negative) Urine Bilirubin Negative (Negative) Urine Urobilinogen <2.0 (<2.0) mg/dL Ur Leukocyte Esterase Trace H (Negative) Urine RBC 1 (0-5) /hpf Urine WBC 2 (0-5) /hpf Ur Squamous Epith Cells 29 H (0-4) /hpf Urine Bacteria Occasional H (None) /hpf Urine Mucus Rare H (None) /hpf Urine HCG, Qual Not Detected (Not Detectd) Disposition Clinical Impression: Yeast infection of the vagina Disposition: HOME SELF-CARE Condition: Stable Instructions: Vulvovaginal Candidiasis (ED) Additional Instructions: Please use medication as discussed. Please follow-up with CANDY BUTCHER/family doctor in the next 2-5 days of symptoms have not improved. Please return to emergency room if the symptoms increase or worsen or for any other concerns. Referrals: Geo De Oliveira MD [Primary Care Provider] - 1-2 days Time of Disposition: 14:37
[2017-09-30] MEDS ORDERED: FLUCONAZOLE 150 MG TAB PO STA (14:06)
[2017-09-30 14:45] LABS: Appearance,Urine Cloudy (Clear); Bacteria,Urine Occasional /hpf; Bilirubin,Urine Negative (Negative); Glucose,Urine (UA) Negative (Negative); Ketones,Urine Negative (Negative); Leukocyte Esterase,Urine Trace (Negative); Mucus,Urine Rare /hpf; Nitrite,Urine Negative (Negative); Particle Count 7136; Protein,Urine Trace (Negative); RBC,Urine 1 /hpf (0-5); Specific Gravity,Urine 1.018 (1.001-1.035); Squamous Epithelial Cell,Urine 29 /hpf (0-4); UA Billing (MACRO vs. MICRO) MICRO; Urobilinogen,Urine <2.0 mg/dL (<2.0); WBC,Urine 2 /hpf (0-5)
[2017-09-30 15:14] VITALS: BP 116/70; PULSE 72; RESP 16; TEMP 97
== END 2017-09-30 15:11 | disposition home or self-care (01) ==
LOC: EC 12:44
DX: B37.3 Candidiasis of vulva and vagina (principal); F17.200 Nicotine dependence, unspecified, uncomplicated; Z88.0 Allergy status to penicillin; Z91.018 Allergy to other foods
CPT/HCPCS: 81001; 81025; 87077; 87086; 87186; 99284

== ENCOUNTER 2017-12-23 21:46 | Emergency (ER) | payer OTHER ==
--- NOTE | 2017-12-23 22:28 | ED ---
Female Urogenital HPI - General Chief complaint: Urogenital Stated complaint: Female Time Seen by Provider: 12/23/17 22:09 Source: patient, RN notes reviewed Mode of arrival: ambulatory Limitations: no limitations - History of Present Illness Initial comments: This is a 22-year-old female who presents to the emergency department with chief complaint of vaginal discharge and rash. Patient states that this is been an ongoing problem for the last 2-3 months. She states that 3 weeks ago she developed a yellow discharge. She states that her last sexual intercourse was protected. This was 4 weeks ago. Her last incidence of unprotected sexual intercourse was 2-3 months ago. Patient states that she does have a history of Trichomonas that she was diagnosed with 4 months ago. Patient states her last menstrual period was 2 weeks ago. She does admit to one but no live births. She states she believes she has a yeast infection as she has had them in the past. She is also concerned about an STD as discharge has an abnormal odor. Denies any fevers or chills, abdominal pain, nausea or vomiting, diarrhea or constipation. - Related Data Home Medications Medication Instructions Recorded Confirmed Albuterol Inhaler [Ventolin Hfa 1 - 2 puff INHALATION RT-Q6H PRN 08/13/17 Inhaler] Ibuprofen [Motrin] 400 mg PO Q6HR PRN 09/30/17 10/03/17 diphenhydrAMINE HCL [Benadryl] 25 mg PO ONCE PRN 10/03/17 10/03/17 Previous Rx's Medication Instructions Recorded Famotidine [Pepcid] 20 mg PO BID #10 tablet 10/03/17 Nitrofurantoin Macrocrystal 100 mg PO BID #14 cap 10/03/17 [Macrodantin] hydrOXYzine HCL [Atarax] 10 mg PO TID #20 tab 10/03/17 predniSONE 50 mg PO DAILY #5 tab 10/03/17 Fluconazole [Diflucan] 150 mg PO DAILY #2 tab 12/23/17 Allergies Allergy/AdvReac Type Severity Reaction Status Date / Time amoxicillin Allergy Rash/Hives Verified 12/23/17 22:07 Penicillins Allergy Rash/Hives Verified 12/23/17 22:07 pineapple Allergy Anaphylaxis Verified 12/23/17 22:07 sulfamethoxazole Allergy Unknown Verified 12/23/17 22:07 [From Bactrim] trimethoprim [From Bactrim] Allergy Unknown Verified 12/23/17 22:07 diphenhydramine AdvReac Nausea Verified 12/23/17 22:07 [From Benadryl] Review of Systems ROS Statement: Those systems with pertinent positive or pertinent negative responses have been documented in the HPI. ROS Other: All systems not noted in ROS Statement are negative. Past Medical History Past Medical History: Asthma Additional Past Medical History / Comment(s): Trichomonas History of Any Multi-Drug Resistant Organisms: MRSA Date of last positivie culture/infection: 09/30/17 MDRO Source:: Urine Past Surgical History: Adenoidectomy, Ear Surgery, Tonsillectomy Past Psychological History: Anxiety, Depression Smoking Status: Current every day smoker Past Alcohol Use History: None Reported Past Drug Use History: Marijuana - Past Family History Mother Family Medical History: Asthma (Mother's 51-year-old has history of asthma) Additional Family Medical History / Comment(s): cholecystectomy Father Family Medical History: No Reported History (Father is 52-year-old has no major medical problems) Brother(s) Family Medical History: No Reported History (Patient has one brother no major medical problems) Sister(s) Family Medical History: Unable to Obtain (Patient has 2 sisters does not know anything about them.) General Exam - General Exam Comments Initial Comments: General: Awake and alert, well-developed; in no apparent distress. HEENT: Head atraumatic, normocephalic. Pupils are equal, round and reactive to light. Extraocular movements intact. Oropharynx moist without erythema or exudate. Neck: Supple. Normal ROM. Cardiovascular: Regular rate and rhythm. No murmurs, rubs or gallops. Chest symmetrical. Respiratory: Lungs clear to auscultation bilaterally. No wheezes, rales or rhonchi. Normal respiratory effort with no use of accessory muscles. Abdomen: Soft, non-tender, non-distended. No rigidity, rebound or guarding. Musculoskeletal: Normal ROM, no tenderness bilateral upper and lower extremities. Ambulating normally. Skin: [place], warm and dry without rashes or lesions. Neurological: Alert and oriented x3. CN II-XII grossly intact. Speech is fluent and answers are appropriate. No focal neuro deficits. Psychiatric: Normal mood and affect. No overt signs of depression or anxiety noted. Limitations: no limitations Rectal exam: Present: normal inspection External exam: Present: normal external exam, erythema. Absent: swelling, lesions, lacerations Speculum exam: Present: vaginal discharge (Homogenous, thin white discharge), other (No cervical petechiae noted). Absent: erythema By manual exam: Present: normal by manual exam Course Vital Signs 12/23/17 22:02 Temperature 98.4 F Pulse Rate 104 H Respiratory 17 Rate Blood Pressure 135/81 O2 Sat by Pulse 98 Oximetry Medical Decision Making - Medical Decision Making This is a 22-year-old female who presents to the emergency department with chief complaint of vaginal discharge and itching. Gonorrhea and chlamydia testing is pending. On speculum examination, there is a thin, white homogenous vaginal discharge, no malodor and no cervical petechiae. No pelvic or abdominal pain. Patient does have some redness of bilateral labia. She states that she has been scratching due to itchiness. She will be treated with Diflucan. Patient's vital signs are stable and she is in no acute distress. She will be discharged home. Patient is in agreement and voices understanding. All questions were answered. Disposition Clinical Impression: Candidiasis of vagina Disposition: HOME SELF-CARE Condition: Good Instructions: Vulvovaginal Candidiasis (ED) Additional Instructions: Please take medications as prescribed. If no improvement of symptoms in 3 days , may repeat a dose of Diflucan. Please follow up with primary care provider within 1-2 days. Return to emergency department if symptoms should worsen or any concerns arise. Prescriptions: Fluconazole [Diflucan] 150 mg PO DAILY #2 tab Referrals: Geo De Oliveira MD [Primary Care Provider] - 1-2 days Time of Disposition: 22:59
[2017-12-23 22:49] LABS: Appearance,Urine Cloudy (Clear); Bilirubin,Urine Negative (Negative); Blood,Urine Negative (Negative); Color,Urine Yellow; Glucose,Urine (UA) Negative (Negative); Ketones,Urine Negative (Negative); Leukocyte Esterase,Urine Negative (Negative); Mucus,Urine Rare /hpf; Nitrite,Urine Negative (Negative); PH, Urine 6.5 (5.0-8.0); Protein,Urine Trace (Negative); RBC,Urine 1 /hpf (0-5); Specific Gravity,Urine 1.025 (1.001-1.035); Squamous Epithelial Cell,Urine 34 /hpf (0-4); Urobilinogen,Urine <2.0 mg/dL (<2.0); WBC,Urine 4 /hpf (0-5)
[2017-12-23 23:00] VITALS: BP 121/78; PULSE 81; RESP 18; TEMP 98.6
[2017-12-26 13:04] LABS: C. trachomatis,PCR Negative (Neg,Equiv); Chlamydia trachomatis Source Urine; N. gonorrhoeae,PCR Negative (Neg,Equiv); Neisseria Source Urine
== END 2017-12-23 23:04 | disposition home or self-care (01) ==
LOC: EC 21:46
DX: B37.3 Candidiasis of vulva and vagina (principal); F17.200 Nicotine dependence, unspecified, uncomplicated; Z86.14 Personal history of Methicillin resistant Staphylococcus aureus infection; Z86.19 Personal history of other infectious and parasitic diseases; Z88.0 Allergy status to penicillin; Z88.1 Allergy status to other antibiotic agents; Z88.2 Allergy status to sulfonamides; Z88.8 Allergy status to other drugs, medicaments and biological substances; Z91.018 Allergy to other foods
CPT/HCPCS: 81001; 81025; 87491; 87591; 99283

== ENCOUNTER 2018-02-03 11:23 | Emergency (ER) | payer OTHER ==
[2018-02-03 11:39] VITALS: BP 134/64; PULSE 117; RESP 20; TEMP 99
--- NOTE | 2018-02-03 12:43 | XR ---
EXAMINATION TYPE: XR chest 2V DATE OF EXAM: 02/03/2018 HISTORY: Pain. REFERENCE: Previous study dated 07/24/2017. FINDINGS: The lungs are clear. Pleural space are clear. The heart is not enlarged. IMPRESSION: NORMAL CHEST.
--- NOTE | 2018-02-03 12:43 | ED ---
General Adult HPI - General Chief complaint: Upper Respiratory Infection Stated complaint: Sore Throat Time Seen by Provider: 02/03/18 12:04 Source: patient, RN notes reviewed Mode of arrival: ambulatory Limitations: no limitations - History of Present Illness Initial comments: 23-year-old female presents to the emergency department for a chief complaint of cough. Patient states she has had a cough for about 2 weeks along with a sore throat. Patient states the cough is sometimes productive. Patient states she has asthma and is a smoker. Patient denies shortness of breath or chest pain. Patient does not have a nebulizer at home. She says she has a inhaler somewhere but she is not sure where it is. Patient states she lost her voice a few days ago. Patient denies congestion, ear pain. Patient denies any urinary symptoms including burning with urination or frequent/infrequent urination. Patient denies any nausea or vomiting or abdominal pain. Patient states she has had fevers on and off for the past week. Her last fever was 2 days ago and was 101 F. Patient has not had a flu shot. Patient denies any chance of and states she has not had intercourse. - Related Data Home Medications Medication Instructions Recorded Confirmed Albuterol Inhaler [Ventolin Hfa 1 - 2 puff INHALATION RT-Q6H PRN 08/13/17 Inhaler] Ibuprofen [Motrin] 400 mg PO Q6HR PRN 09/30/17 10/03/17 diphenhydrAMINE HCL [Benadryl] 25 mg PO ONCE PRN 10/03/17 10/03/17 Previous Rx's Medication Instructions Recorded Famotidine [Pepcid] 20 mg PO BID #10 tablet 10/03/17 Nitrofurantoin Macrocrystal 100 mg PO BID #14 cap 10/03/17 [Macrodantin] hydrOXYzine HCL [Atarax] 10 mg PO TID #20 tab 10/03/17 predniSONE 50 mg PO DAILY #5 tab 10/03/17 Fluconazole [Diflucan] 150 mg PO DAILY #2 tab 12/23/17 Albuterol Inhaler [Ventolin Hfa 1 - 2 puff INHALATION Q6HR PRN #1 02/03/18 Inhaler] inhaler Benzonatate [Tessalon Perles] 200 mg PO Q8H PRN #15 capsule 02/03/18 methylPREDNISolone Dose Pack 4 mg PO DIRECTED #21 package 02/03/18 [Medrol Dose Pack] Allergies Allergy/AdvReac Type Severity Reaction Status Date / Time amoxicillin Allergy Rash/Hives Verified 02/03/18 11:36 Penicillins Allergy Rash/Hives Verified 02/03/18 11:36 pineapple Allergy Anaphylaxis Verified 02/03/18 11:36 sulfamethoxazole Allergy Unknown Verified 02/03/18 11:36 [From Bactrim] trimethoprim [From Bactrim] Allergy Unknown Verified 02/03/18 11:36 diphenhydramine AdvReac Nausea Verified 02/03/18 11:36 [From Benadryl] Review of Systems ROS Statement: Those systems with pertinent positive or pertinent negative responses have been documented in the HPI. ROS Other: All systems not noted in ROS Statement are negative. Past Medical History Past Medical History: Asthma Additional Past Medical History / Comment(s): Trichomonas History of Any Multi-Drug Resistant Organisms: MRSA Date of last positivie culture/infection: 09/30/17 MDRO Source:: Urine Past Surgical History: Adenoidectomy, Ear Surgery, Tonsillectomy Past Psychological History: Anxiety, Depression Smoking Status: Current every day smoker Past Alcohol Use History: None Reported Past Drug Use History: None Reported - Past Family History Mother Family Medical History: Asthma (Mother's 51-year-old has history of asthma) Additional Family Medical History / Comment(s): cholecystectomy Father Family Medical History: No Reported History (Father is 52-year-old has no major medical problems) Brother(s) Family Medical History: No Reported History (Patient has one brother no major medical problems) Sister(s) Family Medical History: Unable to Obtain (Patient has 2 sisters does not know anything about them.) General Exam Limitations: no limitations General appearance: alert, in no apparent distress Eye exam: Present: normal appearance, PERRL, EOMI. Absent: scleral icterus, conjunctival injection, periorbital swelling ENT exam: Present: normal exam, normal oropharynx, mucous membranes moist, TM's normal bilaterally Neck exam: Present: normal inspection. Absent: tenderness, meningismus, lymphadenopathy (No anterior or posterior cervical lymphadenopathy.) Respiratory exam: Present: normal lung sounds bilaterally. Absent: respiratory distress, wheezes, rales, rhonchi, stridor Cardiovascular Exam: Present: regular rate, normal rhythm, normal heart sounds. Absent: systolic murmur, diastolic murmur, rubs, gallop, clicks GI/Abdominal exam: Present: soft, normal bowel sounds. Absent: distended, tenderness, guarding, rebound, rigid Neurological exam: Present: alert, oriented X3 Course Vital Signs 02/03/18 11:37 Temperature 99 F Pulse Rate 117 H Respiratory 20 Rate Blood Pressure 134/64 O2 Sat by Pulse 98 Oximetry Medical Decision Making - Medical Decision Making 22-year-old female with a history of asthma presents the emergency department for a chief complaint of cough. Patient is also a smoker. Patient states she has a sore throat as well but denies congestion, urinary symptoms, nausea vomiting or diarrhea, shortness of breath or chest pain. Patient has had fevers on and off for the past 2 weeks with the last fever being 2 days ago of 101. Patient is afebrile on presentation. Temperature 99.0. Pulse 117, respirations 20, blood pressure 134/64, pulse ox 98. On exam throat is nonerythematous and there are no exudates present. Lungs are clear to auscultation bilaterally. Patient has not had the flu shot. A flu swab, strep swab, and chest x-ray were ordered. Chest x-ray and strep came back negative. Patient is positive for influenza B. I discussed Tamiflu with the patient and she declined due to the risks outweighing the benefits at this point with her symptoms lasting 2 weeks. Patient will continue to take [id number] cold relief. She will take Tylenol for fevers. I will prescribe her Tessalon Perles. I will also give her a Medrol Dosepak and inhaler due to her history of asthma. I discussed stopping smoking for the time being. She is to follow- up with primary care in 1-2 days. She is to return to the emergency Department if she has worsening symptoms. - Lab Data Lab Results 02/03/18 02/03/18 Range/Units 12:22 12:22 Influenza Type A RNA Not Detected (Not Detectd) Influenza Type B (PCR) Detected H (Not Detectd) Group A Strep Rapid Negative (Negative) Disposition Clinical Impression: Influenza B Disposition: HOME SELF-CARE Condition: Good Instructions: Influenza (ED) Additional Instructions: Please return to the emergency department if you have worsening symptoms. Please continue to take Tylenol for fever reduction and [id number] medications for colds and flu symptom relief. You may take Tessalon Perles for cough. Take steroids as directed. Please follow-up with primary care provider in one to 2 days. Prescriptions: Albuterol Inhaler [Ventolin Hfa Inhaler] 1 - 2 puff INHALATION Q6HR PRN #1 inhaler PRN Reason: Shortness Of Breath Benzonatate [Tessalon Perles] 200 mg PO Q8H PRN #15 capsule PRN Reason: Cough methylPREDNISolone Dose Pack [Medrol Dose Pack] 4 mg PO DIRECTED #21 package Referrals: Geo De Oliveira MD [Primary Care Provider] - 1-2 days Time of Disposition: 13:10
== END 2018-02-03 13:22 | disposition home or self-care (01) ==
LOC: EC 11:23
DX: J10.1 Influenza due to other identified influenza virus with other respiratory manifestations (principal); J45.909 Unspecified asthma, uncomplicated; F17.200 Nicotine dependence, unspecified, uncomplicated; Z86.14 Personal history of Methicillin resistant Staphylococcus aureus infection; Z88.0 Allergy status to penicillin; Z88.2 Allergy status to sulfonamides; Z88.8 Allergy status to other drugs, medicaments and biological substances; Z91.018 Allergy to other foods
CPT/HCPCS: 71046; 87081; 87430; 87502; 99283

== ENCOUNTER 2018-04-12 05:38 | Emergency (ER) | payer OTHER ==
[2018-04-12 05:46] VITALS: RESP 20
[2018-04-12] MEDS ORDERED: ACETAMINOPHEN TAB 325 MG TAB PO STA (06:05)
--- NOTE | 2018-04-12 06:09 | ED ---
General Adult HPI - General Chief complaint: Abdominal Pain Stated complaint: Fever,vomiting Time Seen by Provider: 04/12/18 05:56 Source: patient Mode of arrival: ambulatory Limitations: no limitations - History of Present Illness Initial comments: This patient is 23-year-old woman who presents to be evaluated for constellation of symptoms that started 2 days ago, getting worse over the course of last night. She states she initially was having a little bit of congestion and a mild cough. Over the past day she has also developed fever little bit of bifrontal headache. She states the cough is productive of some greenish sputum. She is denying shortness of breath. No chest pain. Onset/Timin -: days(s) - Related Data Previous Rx's Medication Instructions Recorded Albuterol Inhaler [Ventolin Hfa 1 - 2 puff INHALATION Q6HR PRN #1 04/12/18 Inhaler] inhaler Benzonatate [Tessalon Perles] 100 mg PO TID PRN #20 capsule 04/12/18 predniSONE 60 mg PO DAILY #30 tab 04/12/18 Allergies Allergy/AdvReac Type Severity Reaction Status Date / Time amoxicillin Allergy Rash/Hives Verified 02/03/18 11:36 Penicillins Allergy Rash/Hives Verified 02/03/18 11:36 pineapple Allergy Anaphylaxis Verified 02/03/18 11:36 sulfamethoxazole Allergy Unknown Verified 02/03/18 11:36 [From Bactrim] trimethoprim [From Bactrim] Allergy Unknown Verified 02/03/18 11:36 diphenhydramine AdvReac Nausea Verified 02/03/18 11:36 [From Benadryl] Review of Systems ROS Statement: Those systems with pertinent positive or pertinent negative responses have been documented in the HPI. ROS Other: All systems not noted in ROS Statement are negative. Constitutional: Reports: fever. Denies: chills, weakness ENT: Reports: throat pain, congestion. Denies: ear pain, hearing loss Respiratory: Reports: cough. Denies: dyspnea, wheezes, hemoptysis Cardiovascular: Denies: chest pain, orthopnea, edema, syncope Gastrointestinal: Denies: abdominal pain, nausea, vomiting, diarrhea Genitourinary: Denies: dysuria, hematuria Musculoskeletal: Denies: back pain Skin: Denies: rash Neurological: Reports: headache. Denies: weakness, numbness, paresthesias Past Medical History Past Medical History: Asthma Additional Past Medical History / Comment(s): Trichomonas History of Any Multi-Drug Resistant Organisms: MRSA Date of last positivie culture/infection: 09/30/17 MDRO Source:: Urine Past Surgical History: Adenoidectomy, Ear Surgery, Tonsillectomy Past Psychological History: ADD/ADHD, Anxiety, Depression Smoking Status: Current every day smoker Past Alcohol Use History: Occasional Past Drug Use History: None Reported - Past Family History Mother Family Medical History: Asthma (Mother's 51-year-old has history of asthma) Additional Family Medical History / Comment(s): cholecystectomy Father Family Medical History: No Reported History (Father is 52-year-old has no major medical problems) Brother(s) Family Medical History: No Reported History (Patient has one brother no major medical problems) Sister(s) Family Medical History: Unable to Obtain (Patient has 2 sisters does not know anything about them.) General Exam Limitations: no limitations General appearance: alert, in no apparent distress Head exam: Present: atraumatic, normocephalic Eye exam: Present: normal appearance. Absent: scleral icterus, conjunctival injection ENT exam: Present: normal oropharynx Neck exam: Present: normal inspection, full ROM, lymphadenopathy. Absent: meningismus Respiratory exam: Present: normal lung sounds bilaterally. Absent: respiratory distress, wheezes, rales, rhonchi, stridor Cardiovascular Exam: Present: normal rhythm, tachycardia, normal heart sounds. Absent: systolic murmur, diastolic murmur, rubs GI/Abdominal exam: Present: soft. Absent: distended, tenderness, guarding, rebound, mass Skin exam: Present: warm, dry, intact, normal color. Absent: rash Course Vital Signs 04/12/18 04/12/18 05:40 07:16 Temperature 100.2 F H 101.8 F H Pulse Rate 121 H 128 H Respiratory 20 20 Rate Blood Pressure 109/64 105/56 O2 Sat by Pulse 96 94 L Oximetry Disposition Clinical Impression: Bronchitis Disposition: HOME SELF-CARE Condition: Fair Instructions: Acute Bronchitis (ED) Prescriptions: Albuterol Inhaler [Ventolin Hfa Inhaler] 1 - 2 puff INHALATION Q6HR PRN #1 inhaler PRN Reason: Wheezing Benzonatate [Tessalon Perles] 100 mg PO TID PRN #20 capsule PRN Reason: Cough predniSONE 60 mg PO DAILY #30 tab Is patient prescribed a controlled substance at d/c from ED?: No Referrals: Geo De Oliveira MD [Primary Care Provider] - 1-2 days
[2018-04-12 07:18] VITALS: BP 105/56; PULSE 128; TEMP 101.8
[2018-04-12] MEDS ORDERED: predniSONE 20 MG TAB PO STA (07:19)
[2018-04-12] MEDS ORDERED: IBUPROFEN 400 MG TAB PO STA (07:19)
--- NOTE | 2018-04-12 07:30 | XR ---
EXAMINATION TYPE: XR chest 2V DATE OF EXAM: 04/12/2018 COMPARISON: Chest x-ray February 03, 2018. HISTORY: Fever and vomiting. Chest pain per order. TECHNIQUE: Frontal and lateral views of the chest are obtained. FINDINGS: There is no focal air space opacity, pleural effusion, or pneumothorax seen. The cardiac silhouette size is within normal limits. The osseous structures are intact. Overlying metallic nipp le ornaments are redemonstrated. IMPRESSION: No suspicious acute infiltrate.
== END 2018-04-12 07:43 | disposition home or self-care (01) ==
LOC: EC 05:38
DX: J40 Bronchitis, not specified as acute or chronic (principal); F17.200 Nicotine dependence, unspecified, uncomplicated; Z86.14 Personal history of Methicillin resistant Staphylococcus aureus infection; Z88.0 Allergy status to penicillin; Z88.2 Allergy status to sulfonamides; Z88.8 Allergy status to other drugs, medicaments and biological substances; Z91.018 Allergy to other foods
CPT/HCPCS: 71046; 99284; J7512

== ENCOUNTER 2019-04-07 19:47 | Emergency (ER) | payer OTHER ==
[2019-04-07 19:59] VITALS: RESP 18
[2019-04-07] MEDS ORDERED: ACET/COD 300 MG/30 MG STARTER PACK 6 TAB BTL PO STA (20:21)
[2019-04-07] MEDS ORDERED: CLINDAMYCIN 150 MG CAP PO STA (20:21)
[2019-04-07] MEDS ORDERED: KETOROLAC 30 MG/ML 1 ML VIAL IM STA (20:21)
--- NOTE | 2019-04-07 20:32 | ED ---
ENT HPI - General Chief complaint: Dental/Oral Stated complaint: Dental pain Time Seen by Provider: 04/07/19 20:06 Source: patient Mode of arrival: ambulatory Limitations: no limitations - History of Present Illness Initial comments: 25-year-old female patient presents to the emergency department today for evaluation of left lower dental pain. Patient states she's had pain for the last 4 days since her tooth broke. Patient states she was eating and she thought her to this. Patient states the morning she does have swelling to the face. Denies any fevers or chills. Denies any trismus or dysphagia. Denies any nausea or vomiting. Patient states she has been unable to make a dentist appointment because she can no longer go to the clinic that accepts her insurance. She has been taking Aleve intermittently for pain control. She has been applying cold while and using Orajel. States he is measures are not working. Patient denies any recent rash, shortness breath, chest pain, abdominal pain, diarrhea, constipation, back pain, numbness, tingling, dizziness, weakness, hematuria, dysuria, urinary urgency, urinary frequency, headache, visual changes, or any other complaints. - Related Data Home Medications Medication Instructions Recorded Confirmed Ibuprofen [Advil] 400 mg PO Q8HR PRN 04/07/19 04/07/19 Previous Rx's Medication Instructions Recorded Albuterol Inhaler [Ventolin Hfa 1 - 2 puff INHALATION Q6HR PRN #1 04/12/18 Inhaler] inhaler Clindamycin HCl [Cleocin] 450 mg PO Q8H #90 cap 04/07/19 Allergies Allergy/AdvReac Type Severity Reaction Status Date / Time amoxicillin Allergy Rash/Hives Verified 04/07/19 20:20 Penicillins Allergy Rash/Hives Verified 04/07/19 20:20 pineapple Allergy Anaphylaxis Verified 04/07/19 20:20 sulfamethoxazole Allergy Unknown Verified 04/07/19 20:20 [From Bactrim] trimethoprim [From Bactrim] Allergy Unknown Verified 04/07/19 20:20 diphenhydramine AdvReac Nausea Verified 04/07/19 20:20 [From Benadryl] Review of Systems ROS Statement: Those systems with pertinent positive or pertinent negative responses have been documented in the HPI. ROS Other: All systems not noted in ROS Statement are negative. Past Medical History Past Medical History: Asthma Additional Past Medical History / Comment(s): Trichomonas, History of Any Multi-Drug Resistant Organisms: MRSA Date of last positivie culture/infection: 09/30/17 MDRO Source:: Urine Past Surgical History: Adenoidectomy, Ear Surgery, Tonsillectomy Past Psychological History: ADD/ADHD, Anxiety, Depression Smoking Status: Current every day smoker Past Alcohol Use History: Occasional Past Drug Use History: None Reported - Past Family History Mother Family Medical History: Asthma (Mother's 51-year-old has history of asthma) Additional Family Medical History / Comment(s): cholecystectomy Father Family Medical History: No Reported History (Father is 52-year-old has no major medical problems) Brother(s) Family Medical History: No Reported History (Patient has one brother no major medical problems) Sister(s) Family Medical History: Unable to Obtain (Patient has 2 sisters does not know anything about them.) General Exam Limitations: no limitations General appearance: alert, in no apparent distress, other (Physical well-developed, well-nourished adult female patient in no acute distress. Vital signs upon presentation are temperature 98.5F, pulse 82, respirations 18, blood pressure 135/93, pulse ox 99% on room air.) Eye exam: Present: normal appearance, PERRL, EOMI. Absent: scleral icterus, conjunctival injection, periorbital swelling ENT exam: Present: mucous membranes moist, other (Right tooth number 19 is fractured, pulp is visible. Surrounding gingival erythema and hyperplasia. No evidence of drainable abscess.). Absent: normal exam Respiratory exam: Present: normal lung sounds bilaterally. Absent: respiratory distress, wheezes, rales, rhonchi, stridor Cardiovascular Exam: Present: regular rate, normal rhythm, normal heart sounds. Absent: systolic murmur, diastolic murmur, rubs, gallop, clicks Neurological exam: Present: alert, oriented X3, CN II-XII intact Psychiatric exam: Present: normal affect, normal mood Skin exam: Present: warm, dry, intact, normal color. Absent: rash Course Vital Signs 04/07/19 19:56 Temperature 98.5 F Pulse Rate 82 Respiratory 18 Rate Blood Pressure 135/93 O2 Sat by Pulse 99 Oximetry Medical Decision Making - Medical Decision Making 24-year-old female patient presents to the emergency department today for evaluation of left lower dental pain. Physical examination did reveal fractured tooth #1. There is surrounding gingival erythema and hyperplasia. No evidence of drainable abscess. Patient does report morning swelling to the face. We will start clindamycin. She'll be placed on ibuprofen and given a starter pack for Tylenol with Codeine. She is instructed to follow up with dentistry as soon as possible. She'll be given phone number for clinic that accepts [place]. Return parameters were discussed in detail. She verbalizes understanding and agrees with this plan. Disposition Clinical Impression: Broken tooth, Dental infection Disposition: HOME SELF-CARE Condition: Good Instructions (If sedation given, give patient instructions): Dental Caries (ED), Toothache (ED) Additional Instructions: Follow-up with dentistry for recheck as soon as possible. Complete medications as directed. Follow-up with the primary care physician for recheck in 1-2 days. Return to the emergency department immediately for any new, worsening, or concerning symptoms. [facility]: Prescriptions: Clindamycin HCl [Cleocin] 450 mg PO Q8H #90 cap Is patient prescribed a controlled substance at d/c from ED?: No Referrals: Geo De Oliveira MD [Primary Care Provider] - 1-2 days Time of Disposition: 20:31
[2019-04-07 21:16] VITALS: BP 137/94; PULSE 80; TEMP 98.4
== END 2019-04-07 21:16 | disposition home or self-care (01) ==
LOC: EC 19:47
DX: K04.7 Periapical abscess without sinus (principal); S02.5XXA Fracture of tooth (traumatic), initial encounter for closed fracture; K06.2 Gingival and edentulous alveolar ridge lesions associated with trauma; F17.200 Nicotine dependence, unspecified, uncomplicated; Z88.0 Allergy status to penicillin; Z88.1 Allergy status to other antibiotic agents; Z88.2 Allergy status to sulfonamides; Z88.8 Allergy status to other drugs, medicaments and biological substances; Z91.018 Allergy to other foods
CPT/HCPCS: 99282; J1885

== ENCOUNTER 2019-06-25 12:33 | Inpatient (IN) | payer MEDICAID, OTHER ==
--- NOTE | 2019-06-25 13:13 | ED ---
Psych HPI - General Chief Complaint: Psychiatric Symptoms Stated Complaint: Suicidal Time Seen by Provider: 06/25/19 12:37 Source: patient, EMS, RN notes reviewed Mode of arrival: EMS Limitations: no limitations - History of Present Illness Initial Comments: 24-year-old female presents emergency department via EMS with police for psychiatric evaluation. Patient is petition by police for suicidal ideation. Patient states that she is very depressed and states that she does have thoughts of hurting herself but states that she would not do it. She states her mom commit suicide 3 weeks ago. Patient states that her mom suffocating herself and states that she blames herself for it but also the Dr. for placing her on antidepressants. She denies any drug or alcohol abuse. Denies any physical complaints. - Related Data Home Medications Medication Instructions Recorded Confirmed Albuterol Inhaler [Ventolin Hfa 1 - 2 puff INHALATION RT-Q6H PRN 06/25/19 06/25/19 Inhaler] Allergies Allergy/AdvReac Type Severity Reaction Status Date / Time amoxicillin Allergy Rash/Hives Verified 06/25/19 13:05 Penicillins Allergy Rash/Hives Verified 06/25/19 13:05 pineapple Allergy Anaphylaxis Verified 06/25/19 13:05 sulfamethoxazole Allergy Unknown Verified 06/25/19 13:05 [From Bactrim] trimethoprim [From Bactrim] Allergy Unknown Verified 06/25/19 13:05 diphenhydramine AdvReac Nausea Verified 06/25/19 13:05 [From Benadryl] Review of Systems ROS Statement: Those systems with pertinent positive or pertinent negative responses have been documented in the HPI. ROS Other: All systems not noted in ROS Statement are negative. Past Medical History Past Medical History: Asthma Additional Past Medical History / Comment(s): Trichomonas, History of Any Multi-Drug Resistant Organisms: MRSA Date of last positivie culture/infection: 09/30/17 MDRO Source:: Urine Past Surgical History: Adenoidectomy, Ear Surgery, Tonsillectomy Past Psychological History: ADD/ADHD, Anxiety, Depression Smoking Status: Current every day smoker Past Alcohol Use History: Occasional Past Drug Use History: None Reported - Past Family History Mother Family Medical History: Asthma (Mother's 51-year-old has history of asthma) Additional Family Medical History / Comment(s): cholecystectomy Father Family Medical History: No Reported History (Father is 52-year-old has no major medical problems) Brother(s) Family Medical History: No Reported History (Patient has one brother no major medical problems) Sister(s) Family Medical History: Unable to Obtain (Patient has 2 sisters does not know anything about them.) General Exam General appearance: alert, in no apparent distress Head exam: Present: atraumatic, normocephalic, normal inspection Eye exam: Present: normal appearance, PERRL, EOMI. Absent: scleral icterus, conjunctival injection, periorbital swelling Neck exam: Present: normal inspection, full ROM. Absent: tenderness, meningismus, lymphadenopathy Respiratory exam: Present: normal lung sounds bilaterally. Absent: respiratory distress, wheezes, rales, rhonchi, stridor Cardiovascular Exam: Present: regular rate, normal rhythm, normal heart sounds. Absent: systolic murmur, diastolic murmur, rubs, gallop, clicks Neurological exam: Present: alert, oriented X3, CN II-XII intact Psychiatric exam: Present: depressed Skin exam: Present: warm, dry, intact, normal color. Absent: rash Course Vital Signs 06/25/19 12:37 Temperature 99.1 F Pulse Rate 81 Respiratory 17 Rate Blood Pressure 138/105 O2 Sat by Pulse 96 Oximetry Medical Decision Making - Medical Decision Making 24-year-old female presented for psychiatric evaluation. Patient was admitted by EPS case discussed with psychiatrist who recommends inpatient treatment. - Lab Data Lab Results 06/25/19 06/25/19 Range/Units 13:00 13:00 Urine Color Yellow Urine Appearance Cloudy H (Clear) Urine pH 5.5 (5.0-8.0) Ur Specific [place] 1.024 (1.001-1.035) Urine Protein Trace H (Negative) Urine Glucose (UA) Negative (Negative) Urine Ketones Negative (Negative) Urine Blood Negative (Negative) Urine Nitrite Negative (Negative) Urine Bilirubin Negative (Negative) Urine Urobilinogen <2.0 (<2.0) mg/dL Ur Leukocyte Esterase Negative (Negative) Urine RBC 2 (0-5) /hpf Urine WBC 9 H (0-5) /hpf Ur Squamous Epith Cells 3 (0-4) /hpf Urine Bacteria Many H (None) /hpf Urine Mucus Few H (None) /hpf Urine HCG, Qual Not Detected (Not Detectd) Urine Opiates Screen Not Detected (NotDetected) Ur Oxycodone Screen Not Detected (NotDetected) Urine Methadone Screen Not Detected (NotDetected) Ur Propoxyphene Screen Not Detected (NotDetected) Ur Barbiturates Screen Not Detected (NotDetected) U Tricyclic Antidepress Not Detected (NotDetected) Ur Phencyclidine Scrn Not Detected (NotDetected) Ur Amphetamines Screen Detected H (NotDetected) U Methamphetamines Scrn Detected H (NotDetected) U Benzodiazepines Scrn Not Detected (NotDetected) Urine Cocaine Screen Not Detected (NotDetected) U Marijuana (THC) Screen Not Detected (NotDetected) Disposition Clinical Impression: Depression, Suicidal ideation Disposition: TRANSFER TO PSYCH HOSP/UNIT Referrals: None,Stated [Primary Care Provider] - 1-2 days
[2019-06-25 13:30] LABS: Appearance,Urine Cloudy (Clear); Bacteria,Urine Many /hpf; Bilirubin,Urine Negative (Negative); Blood,Urine Negative (Negative); Color,Urine Yellow; Glucose,Urine (UA) Negative (Negative); Ketones,Urine Negative (Negative); Leukocyte Esterase,Urine Negative (Negative); Mucus,Urine Few /hpf; Nitrite,Urine Negative (Negative); PH, Urine 5.5 (5.0-8.0); Protein,Urine Trace (Negative); RBC,Urine 2 /hpf (0-5); Specific Gravity,Urine 1.024 (1.001-1.035); Squamous Epithelial Cell,Urine 3 /hpf (0-4); Urobilinogen,Urine <2.0 mg/dL (<2.0)
[2019-06-25 13:33] LABS: Amphetamine Screen,Urine Detected (NotDetected); Barbiturate Screen,Urine Not Detected (NotDetected); Benzodiazepines Screen,Urine Not Detected (NotDetected); Cocaine Screen,Urine Not Detected (NotDetected); Methadone Screen, Urine Not Detected (NotDetected); Opiate Screen,Urine Not Detected (NotDetected); Oxycodone Screen, Urine Not Detected (NotDetected); Phencyclidine Screen,Urine Not Detected (NotDetected); Tricyclic Antidepressant,Urine Not Detected (NotDetected); Urn Cannabinoid Scrn Not Detected (NotDetected)
[2019-06-25] MEDS ORDERED: NICOTINE 21MG/24HR PATCH TRANSDERM STA (19:52)
[2019-06-26] MEDS ORDERED: LORazepam 1 MG TAB PO PRN (13:18)
[2019-06-26] MEDS ORDERED: MAGNESIUM HYDROXIDE 2,400 MG/10 ML CUP PO PRN (13:18)
[2019-06-26] MEDS ORDERED: ACETAMINOPHEN TAB 325 MG TAB PO PRN (13:18)
[2019-06-26] MEDS ORDERED: MAG HYDROX/AL HYDROX/SIMETH 30 ML CUP PO PRN (13:18)
[2019-06-26] MEDS: NICOTINE 21MG/24HR PATCH TRANSDERM SCH (14:46)
[2019-06-26 15:07] VITALS: BMI 36.8
--- NOTE | 2019-06-26 17:15 | P.HPMEDMHU ---
History of Present Illness H&P Date: 06/26/19 Chief Complaint: Consult for U HPI referring physician Dr. Wheeler The patient is a 24-year-old obese female with a past medical history of asthma, smoking and depression who presented to the ER with suicidal ideation and having panic attacks. Apparently the patient recently lost her mother to suicide committed earlier this month and since then the patient has been having increasingly poor sleep having episodic panic attacks has been severely depressed. Patient reports that she last asthma attack earlier this month and her mother in that she reports ongoing nocturnal cough almost nightly and continues to smoke, she reports wheezing at times worse with exertion and seasonal change. She denies any severe shortness of breath, denies any subjective fevers chills or night sweats. She reports that she does not currently have a rescue inhaler and reports that she if she did she would use it almost daily. Patient denies any history of being on inhaled steroid to maintain her asthma. The patient reports history of ADHD and reports taking Adderall recently In the ER the patient had a UDS that was positive for methamphetamine and amphetamines. She is admitted to the psychiatric unit voluntarily Review of Systems Pertinent pulses per HPI all others and was negative Past Medical History Past Medical History: Asthma Additional Past Medical History / Comment(s): Trichomonas, History of Any Multi-Drug Resistant Organisms: MRSA Date of last positivie culture/infection: 09/30/17 MDRO Source:: Urine Past Surgical History: Adenoidectomy, Ear Surgery, Tonsillectomy Past Psychological History: ADD/ADHD, Anxiety, Depression Smoking Status: Current every day smoker Past Alcohol Use History: Occasional Past Drug Use History: None Reported - Past Family History Mother Family Medical History: Asthma Additional Family Medical History / Comment(s): cholecystectomy Father Family Medical History: No Reported History Brother(s) Family Medical History: No Reported History Sister(s) Family Medical History: Unable to Obtain Medications and Allergies Home Medications Medication Instructions Recorded Confirmed Type Albuterol Inhaler [Ventolin Hfa 1 - 2 puff INHALATION RT-[id number] PRN 06/25/19 06/25/19 History Inhaler] Allergies Allergy/AdvReac Type Severity Reaction Status Date / Time amoxicillin Allergy Rash/Hives Verified 06/26/19 14:24 Penicillins Allergy Rash/Hives Verified 06/26/19 14:24 pineapple Allergy Anaphylaxis Verified 06/26/19 14:24 sulfamethoxazole Allergy Unknown Verified 06/26/19 14:24 [From Bactrim] trimethoprim [From Bactrim] Allergy Unknown Verified 06/26/19 14:24 diphenhydramine AdvReac Nausea Verified 06/26/19 14:24 [From Benadryl] Physical Exam Vitals: Vital Signs Temp Pulse Resp BP BP Pulse Ox 06/26/19 15:03 97.3 F L 18 133/88 97 06/26/19 14:02 97.3 F L 18 133/88 97 06/26/19 10:22 73 16 111/72 98 06/26/19 02:57 71 16 99/67 98 06/25/19 18:46 88 16 115/72 94 L Intake and Output 06/26/19 06/26/19 06/26/19 06:59 14:59 22:59 Other: Weight 106.8 kg Constitutional: No acute distress, conversant, pleasant Eyes: Anicteric sclerae, moist conjunctiva, no lid-lag, PERRLA ENMT: NC/AT,Oropharynx clear, no erythema, exudates Neck:Supple, FROM, no masses, or JVD, No carotid bruits; No thyromegaly Lungs: Clear to auscultation, Clear to percussion, Normal respiratory effort, no accessory muscle use Cardiovascular: Heart regular in rate and rhythm, No murmurs, gallops, or rubs no peripheral edema Abdominal: Soft Nontender, nom distended, no guarding, no rebound or rigidity, Normoactive bowel sounds No hepatomegaly, No splenomegaly, No palpable mass No abdominal wall hernia noted Skin: Normal temperature, tone, texture, turgor, No induration No subcutaneous nodules, No rash, lesions, No ulcers Extremities:No digital cyanosis No clubbing, Pedal pulses intact and symmetrical Radial pulses intact and symmetrical Normal gait and station, No calf tenderness Psychiatric: Alert and oriented to person, place and time, flat affect depressed mood Neuro: Muscles Strength 5/5 in all 4 extremities, Sensation to light touch grossly present throughout, Cranial nerves II-XII grossly intact. No focal sensory deficits Cranial Nerve Examination - Cranial Nerves Cranial Nerve II- Optic: Intact Cranial Nerve III- Oculomotor: Intact Cranial Nerve IV- Trochlear: Intact Cranial Nerve V- Trigeminal: Intact Cranial Nerve - Abducens: Intact Cranial Nerve VII- Facial: Intact Cranial Nerve VIII- Auditory: Intact Cranial Nerve IX- Glossopharyngeal: Intact Cranial Nerve X- Vagus: Intact Cranial Nerve XI- Accessory: Intact Cranial Nerve XII- Hypoglossal: Intact Thrombosis Risk Factor Assmnt - Choose All That Apply Any of the Below Risk Factors Present?: No Assessment and Plan (1) Asthma, severe persistent Current Visit: Yes Status: Acute Code(s): J45.50 - SEVERE PERSISTENT ASTHMA, UNCOMPLICATED SNOMED Code(s): 609408304 (2) Essential hypertension Current Visit: Yes Status: Acute Code(s): I10 - ESSENTIAL (PRIMARY) HYPERTENSION SNOMED Code(s): 62405947 (3) Depression Current Visit: Yes Status: Acute Code(s): F32.9 - MAJOR DEPRESSIVE DISORDER, SINGLE EPISODE, UNSPECIFIED SNOMED Code(s): 26981697 (4) Suicidal ideation Current Visit: Yes Status: Acute Code(s): R45.851 - SUICIDAL IDEATIONS SNOMED Code(s): 8759703 Plan: The patient is admitted to acute inpatient psychiatric team with suicidal ideation depression has a history of asthma that's seems to be severe persistent based on classification of her ongoing nighttime cough. We'll defer to acute inpatient psychiatry team regarding ongoing psychotropic and cognitive behavioral therapies. With regards to her medical issues the patient will be started on Symbicort and albuterol as needed, the patient's blood pressure is noted to be elevated and will be started on HCTZ. We'll follow-up her admission labs and continue to follow her clinical course. Appreciate the opportunity to be involved in this patient's care, for any further questions present has to contact the [facility] [place] inpatient team
[2019-06-26] MEDS: SYMBICORT 160-4.5 MCG INHALER INHALATION SCH (18:33)
[2019-06-27] MEDS: SYMBICORT 160-4.5 MCG INHALER INHALATION SCH ×2 (09:01→21:12)
[2019-06-27] MEDS: HYDROCHLOROTHIAZIDE 25 MG TAB PO SCH (09:02)
[2019-06-27] MEDS: NICOTINE 21MG/24HR PATCH TRANSDERM SCH (09:02)
[2019-06-27 09:30] LABS: Basophils # (A) 0.1 k/uL (0-0.2); Basophils % (A) 1 %; Eosinophils # (A) 0.3 k/uL (0-0.7); Eosinophils % (A) 4 %; HCT 47.6 % (34.0-46.0); HGB 15.8 gm/dL (11.4-16.0); Lymphocytes # (A) 3.2 k/uL (1.0-4.8); Lymphocytes % (A) 33 %; MCH 29.5 pg (25.0-35.0); MCHC 33.2 g/dL (31.0-37.0); MCV 88.7 fL (80.0-100.0); Mean Platelet Volume 7.9; Monocytes # (A) 0.7 k/uL (0-1.0); Monocytes % (A) 7 %; Neutrophils # (A) 5.2 k/uL (1.3-7.7); Neutrophils % (A) 54 %; Platelet Count 272 k/uL (150-450); RBC 5.37 m/uL (3.80-5.40); RDW 13.5 % (11.5-15.5); WBC 9.7 k/uL (3.8-10.6)
[2019-06-27 09:39] LABS: ALT 28 U/L (9-52); AST 28 U/L (14-36); African American GFR (CKD) >90 (>60 ml/min/1.73 sqM); Albumin 4.6 g/dL (3.5-5.0); Alkaline Phosphatase 93 U/L (38-126); Anion Gap 10 mmol/L; Bilirubin, Delta 0.1 mg/dL (0.0-0.2); Bilirubin,Unconjugated 0.3 mg/dL (0.0-1.1); Blood Urea Nitrogen 12 mg/dL (7-17); Calcium 10.1 mg/dL (8.4-10.2); Carbon Dioxide 28 mmol/L (22-30); Chloride 103 mmol/L (98-107); Cholesterol 234 mg/dL (<200); Glucose 114 mg/dL (74-99); HDL Cholesterol 48 mg/dL (40-60); LDL Cholesterol,Calculated 125 mg/dL (0-99); Potassium 4.6 mmol/L (3.5-5.1); Sodium 141 mmol/L (137-145); Total Bilirubin 0.4 mg/dL (0.2-1.3); Total Protein 7.7 g/dL (6.3-8.2); Triglycerides 304 mg/dL (<150)
--- NOTE | 2019-06-27 11:37 | P.HP ---
Psychiatric H&P - . History & Physical: Allergies Allergy/AdvReac Type Severity Reaction Status Date / Time amoxicillin Allergy Rash/Hives Verified 06/26/19 14:24 Penicillins Allergy Rash/Hives Verified 06/26/19 14:24 pineapple Allergy Anaphylaxis Verified 06/26/19 14:24 sulfamethoxazole Allergy Unknown Verified 06/26/19 14:24 [From Bactrim] trimethoprim [From Bactrim] Allergy Unknown Verified 06/26/19 14:24 diphenhydramine AdvReac Nausea Verified 06/26/19 14:24 [From Benadryl] Vital Signs Temp 98.2 F 06/27/19 06:14 Pulse 99 06/27/19 09:04 Resp 16 06/27/19 09:04 BP 116/72 06/27/19 09:04 Pulse Ox 97 06/26/19 15:03 Intake & Output 06/26/19 06/27/19 06/27/19 18:59 06:59 18:59 Weight 106.8 kg Laboratory Last Values WBC 9.7 k/uL (3.8-10.6) 06/27/19 08:41 RBC 5.37 m/uL (3.80-5.40) 06/27/19 08:41 Hgb 15.8 gm/dL (11.4-16.0) 06/27/19 08:41 Hct 47.6 % (34.0-46.0) H 06/27/19 08:41 MCV 88.7 fL (80.0-100.0) 06/27/19 08:41 MCH 29.5 pg (25.0-35.0) 06/27/19 08:41 MCHC 33.2 g/dL (31.0-37.0) 06/27/19 08:41 RDW 13.5 % (11.5-15.5) 06/27/19 08:41 Plt Count 272 k/uL (150-450) 06/27/19 08:41 Neutrophils % 54 % 06/27/19 08:41 Lymphocytes % 33 % 06/27/19 08:41 Monocytes % 7 % 06/27/19 08:41 Eosinophils % 4 % 06/27/19 08:41 Basophils % 1 % 06/27/19 08:41 Neutrophils # 5.2 k/uL (1.3-7.7) 06/27/19 08:41 Lymphocytes # 3.2 k/uL (1.0-4.8) 06/27/19 08:41 Monocytes # 0.7 k/uL (0-1.0) 06/27/19 08:41 Eosinophils # 0.3 k/uL (0-0.7) 06/27/19 08:41 Basophils # 0.1 k/uL (0-0.2) 06/27/19 08:41 Sodium 141 mmol/L (137-145) 06/27/19 08:41 Potassium 4.6 mmol/L (3.5-5.1) 06/27/19 08:41 Chloride 103 mmol/L (98-107) 06/27/19 08:41 Carbon Dioxide 28 mmol/L (22-30) 06/27/19 08:41 Anion Gap 10 mmol/L 06/27/19 08:41 BUN 12 mg/dL (7-17) 06/27/19 08:41 Creatinine 0.77 mg/dL (0.52-1.04) 06/27/19 08:41 Est GFR (CKD-EPI)AfAm >90 (>60 ml/min/1.73 sqM) 06/27/19 08:41 Est GFR (CKD-EPI)NonAf >90 (>60 ml/min/1.73 sqM) 06/27/19 08:41 Glucose 114 mg/dL (74-99) H 06/27/19 08:41 Calcium 10.1 mg/dL (8.4-10.2) 06/27/19 08:41 Total Bilirubin 0.4 mg/dL (0.2-1.3) 06/27/19 08:41 Conjugated Bilirubin 0.0 mg/dL (0.0-0.3) 06/27/19 08:41 Unconjugated Bilirubin 0.3 mg/dL (0.0-1.1) 06/27/19 08:41 Delta Bilirubin 0.1 mg/dL (0.0-0.2) 06/27/19 08:41 AST 28 U/L (14-36) 06/27/19 08:41 ALT 28 U/L (9-52) 06/27/19 08:41 Alkaline Phosphatase 93 U/L (38-126) 06/27/19 08:41 Total Protein 7.7 g/dL (6.3-8.2) 06/27/19 08:41 Albumin 4.6 g/dL (3.5-5.0) 06/27/19 08:41 Triglycerides 304 mg/dL (<150) H 06/27/19 08:41 Cholesterol 234 mg/dL (<200) H 06/27/19 08:41 LDL Cholesterol, Calc 125 mg/dL (0-99) H 06/27/19 08:41 HDL Cholesterol 48 mg/dL (40-60) 06/27/19 08:41 TSH 3.260 mIU/L (0.465-4.680) 06/27/19 08:41 Urine Color Yellow 06/25/19 13:00 Urine Appearance Cloudy (Clear) H 06/25/19 13:00 Urine pH 5.5 (5.0-8.0) 06/25/19 13:00 Ur Specific Coleman 1.024 (1.001-1.035) 06/25/19 13:00 Urine Protein Trace (Negative) H 06/25/19 13:00 Urine Glucose (UA) Negative (Negative) 06/25/19 13:00 Urine Ketones Negative (Negative) 06/25/19 13:00 Urine Blood Negative (Negative) 06/25/19 13:00 Urine Nitrite Negative (Negative) 06/25/19 13:00 Urine Bilirubin Negative (Negative) 06/25/19 13:00 Urine Urobilinogen <2.0 mg/dL (<2.0) 06/25/19 13:00 Ur Leukocyte Esterase Negative (Negative) 06/25/19 13:00 Urine RBC 2 /hpf (0-5) 06/25/19 13:00 Urine WBC 9 /hpf (0-5) H 06/25/19 13:00 Ur Squamous Epith Cells 3 /hpf (0-4) 06/25/19 13:00 Urine Bacteria Many /hpf (None) H 06/25/19 13:00 Urine Mucus Few /hpf (None) H 06/25/19 13:00 Urine HCG, Qual Not Detected (Not Detectd) 06/25/19 13:00 Urine Opiates Screen Not Detected (NotDetected) 06/25/19 13:00 Ur Oxycodone Screen Not Detected (NotDetected) 06/25/19 13:00 Urine Methadone Screen Not Detected (NotDetected) 06/25/19 13:00 Ur Propoxyphene Screen Not Detected (NotDetected) 06/25/19 13:00 Ur Barbiturates Screen Not Detected (NotDetected) 06/25/19 13:00 U Tricyclic Antidepress Not Detected (NotDetected) 06/25/19 13:00 Ur Phencyclidine Scrn Not Detected (NotDetected) 06/25/19 13:00 Ur Amphetamines Screen Detected (NotDetected) H 06/25/19 13:00 U Methamphetamines Scrn Detected (NotDetected) H 06/25/19 13:00 U Benzodiazepines Scrn Not Detected (NotDetected) 06/25/19 13:00 Urine Cocaine Screen Not Detected (NotDetected) 06/25/19 13:00 U Marijuana (THC) Screen Not Detected (NotDetected) 06/25/19 13:00 06/27/19 11:27 IDENTIFYING DATA: This patient is a 24-year-old single female who was admitted to the mental health unit with acute suicidal ideation. HPI: The patient stated that her mother committed suicide 3 weeks ago and her fianc found her. The patient had a verbal altercation with her earlier that morning and she is afraid that contributed to her mother's . The patient states that the next day she attempted to kill herself the same way her mother did by putting a plastic bag over her head. She felt that it wouldn't work and she aborted the attempt. She states that she has struggled with symptoms of depression since age 14 and it's been certainly much worse recently. She has been tearful she describes poor sleep or energy active appetite and poor motivation. She describes feelings of anxiety that will manifest as panic attacks. She states they will last several minutes and included feeling of claustrophobia sweating shortness of breath increased heart rate etc. He is a been happening frequently especially since the of her mother. She is reporting no auditory or visual hallucinations or any specific delusions she endorses no history of hypomanic or manic episodes. She reports no ownership of firearms. Recent stressors in addition to her mother's include being evicted from her apartment and having no outpatient mental health services in place. PAST PSYCHIATRIC HISTORY: This is her first psychiatric hospitalization she states that she may have seen a counselor at a much younger age but cannot recall. She states that she has had suicide attempts in the past one was at 14 years old she had 2 more at age 18 where she cut her wrist and attempted to hang herself and she describes a history of self-injurious behavior in the form of cutting that lasted from age 18 through 19 and she stopped when she turned 20. She states she may have been prescribed a psychotropic medication the past but does not recall what it was. She expresses concerns that the medicines may cause suicidal ideation. PMH: She describes having arthritic pain ALLERGIES: Amoxicillin penicillin Bactrim MEDICATIONS: None CHEMICAL DEPENDENCY HISTORY: She reports no use of marijuana since the age of 20, she states she uses alcohol once every 2 weeks, she states she will occasionally snort Adderall. She did have amphetamines and methamphetamine in her system but she states she did not knowingly use methamphetamine. She states it did burn when she snorted the Adderall last time which was the only difference she noticed. She's never been placed in residential treatment for chemical pension reasons. FAMILY PSYCHIATRIC HISTORY: Her mother committed suicide 3 weeks ago and was known to have depression, her maternal aunt committed suicide and was known to have depression FAMILY CHEMICAL DEPENDENCY HISTORY: Maternal aunt known to have alcohol use disorder SOCIAL HISTORY: The patient is 24 she single but is engaged she has been with her fianc for 2-3 years they have been residing together but are being evicted. She is employed doing telemarketing and also stripping, she went as far as 10th grade in school and then began the [employer] but did not complete. No history of service. She has one half-sister and one brother they do not live locally. She states when she was 14 her parents . They frequently moved around and that was the reason she stopped school in 10th grade. In terms of legal history she is on probation she was discharged with miscellaneous destruction of property, no history of abuse reported MENTAL STATUS EXAM: The patient is an overweight female appearing her stated age. She has a disheveled appearance she is dressed in her own clothing. She has no's and facial piercings. Eye contact is appropriate speech is fluent and spontaneous nonpressured. She describes a depressed mood she is briefly tearful during the session she describes recent hopeless thoughts and suicidal ideation. She reports no homicidal ideation. She reports no auditory or visual hallucinations or any specific delusions there is no objective evidence of p sychosis. She demonstrates no tangential thinking loose associations or flight of ideas she does not appear hypomanic or manic. Insight and judgment limited. She is oriented to person place and date. She is able to name the days of the week backwards. She demonstrates no verbal or physical aggressiveness she demonstrates no involuntary repetitive movements. STRENGTHS/WEAKNESSES: Strengths: Support from perez, willingness to receive treatment he misses: Recent loss of her mother, financial INTELLECTUAL FUNCTIONING: Average IMPRESSIONS: [] 1. Major depressive disorder recurrent severe without psychosis, rule out stimulant use disorder, rule out acute stress disorder 2. Rule out cluster B traits PLAN: The patient has been admitted to the mental health unit voluntarily. We reviewed her presenting symptoms and treatment options. She was amenable to starting Lexapro 10 mg daily for depressive and anxiety symptoms. We discussed potential benefits and side effects of Lexapro and her questions were answered. She asks to use melatonin for sleep which we will prescribe 5 mg at bedtime. She will be seen by internal medicine for routine history and physical exam. Social work will meet with the patient to complete a psychosocial assessment and begin discharge planning. She will be asked to participate in groups we will monitor her for safety. We will involve her family in treatment and discharge planning as she will allow. Vital signs and labs reviewed.
[2019-06-27] MEDS: ESCITALOPRAM 10 MG TAB PO SCH (12:39)
[2019-06-27] MEDS: IBUPROFEN 400 MG TAB PO PRN ×2 (12:39→21:11)
[2019-06-27 18:56] LABS: Hemoglobin A1C 5.2 % (4.0-6.0)
[2019-06-27] MEDS: MELATONIN 5 MG TABLET PO SCH (21:09)
[2019-06-28] MEDS: NICOTINE 21MG/24HR PATCH TRANSDERM SCH (08:31)
[2019-06-28] MEDS: HYDROCHLOROTHIAZIDE 25 MG TAB PO SCH (08:31)
[2019-06-28] MEDS: ESCITALOPRAM 10 MG TAB PO SCH (08:32)
[2019-06-28] MEDS: SYMBICORT 160-4.5 MCG INHALER INHALATION SCH ×2 (08:33→21:31)
[2019-06-28] MEDS: IBUPROFEN 400 MG TAB PO PRN ×2 (08:35→21:31)
--- NOTE | 2019-06-28 10:49 | P.PN ---
Progress Note - Text Interval history: The patient is found in the hallway she follows me to an interview room. She indicates that she is doing okay in the mental health unit but still feels sad. Whenever she thinks of her mother she becomes more depressed. We reviewed the Lexapro her questions were answered. She still agreeable to continuing that medication. She has been attending group. Staff report that she has been contributing and has been cooperative. She anticipates her fianc and father will visit over the weekend and she expects that she will stay with her father upon discharge. Mental status exam: The patient's is alert she is dressed in her own clothing hygiene grooming adequate. Speech is fluent and spontaneous nonpressured. She describes a depressed mood. She states that she will have hopelessness and suicidal thoughts when she thinks of her mother. They seem to intensify in the evening hours. She describes no thoughts of harming others. She is reporting no auditory or visual hallucinations or any specific delusions. She demonstrates no tangential thinking loose associations or flight of ideas. She does not appear hypomanic or manic. Insight and judgment limited. She is oriented to person place and date. Impression/plan: Continued symptoms of depression, continue Lexapro as written. She is encouraged to continue participating in the milieu we will monitor her for safety. Vital signs reviewed. She requires continued psychiatric hospitalization for acute safety reasons.
[2019-06-28] MEDS: ALBUTEROL INHALER 60 PUFF/8 GM INHALER INHALATION PRN (16:52)
[2019-06-28] MEDS: MELATONIN 5 MG TABLET PO SCH (21:30)
[2019-06-29] MEDS: HYDROCHLOROTHIAZIDE 25 MG TAB PO SCH (08:35)
[2019-06-29] MEDS: SYMBICORT 160-4.5 MCG INHALER INHALATION SCH ×2 (08:35→20:39)
[2019-06-29] MEDS: NICOTINE 21MG/24HR PATCH TRANSDERM SCH ×2 (08:35→16:26)
[2019-06-29] MEDS: ESCITALOPRAM 10 MG TAB PO SCH (08:35)
--- NOTE | 2019-06-29 18:22 | P.PN ---
Progress Note - Text Progress Note Date: 06/29/19 IDENTIFICATION DATA: 24-year-old single female with chronic history of depression admitted to the mental health unit with acute suicidal ideation. INTERVAL HISTORY: Patient was seen today. She complains of poor sleep and attributes it being too anxious and not having her comfort blanket. She reports pulling on her hair, when she is too anxious. She reports worsening of her anxiety when she is around strangers or unknown people and claims she is claustrophobic. She reports hearing her mothers voice at times . Denies command hallucinations. She reports feeling uncomfortable due to one of the male patients behavior on the unit. She reports being compliant with her medications, denies side effects. Rates her depression to be 7/10 still. 10 BEING WORST. MENTAL STATUS EXAMINATION: 24 year old woman, appears in fair grooming and hygiene. Maintains good eye contact. . Mood is sad and affect constricted. Speech and thought process are goal directed. Denies current auditory or visual hallucinations and paranoid ideations. Alert and oriented x 4. Denies suicidal or homicidal ideations. Insight and judgement are improving. ASSESSMENT Major depressive disorder recurrent severe without psychosis, PLAN: continue Lexapro and melatonin
[2019-06-29] MEDS: MELATONIN 5 MG TABLET PO SCH (20:38)
[2019-06-29] MEDS: IBUPROFEN 400 MG TAB PO PRN (20:40)
[2019-06-30] MEDS: NICOTINE 21MG/24HR PATCH TRANSDERM SCH (07:58)
[2019-06-30] MEDS: HYDROCHLOROTHIAZIDE 25 MG TAB PO SCH (07:59)
[2019-06-30] MEDS: ESCITALOPRAM 10 MG TAB PO SCH (07:59)
[2019-06-30] MEDS: SYMBICORT 160-4.5 MCG INHALER INHALATION SCH ×2 (08:00→21:03)
--- NOTE | 2019-06-30 15:44 | P.PN ---
Progress Note - Text Progress Note Date: 06/30/19 IDENTIFICATION DATA: 24-year-old single female with chronic history of depression admitted to the mental health unit with acute suicidal ideation. INTERVAL HISTORY: Patient was seen today. She continues to feel depressed ruminates on not having access to her comfort blanket. She reprts becoming tearful with worsening of her suicidal thoughts at night. She reports poor sleep, twisting and turning at night and claims she only gets four hours of sleep. She reports being compliant with her medications, denies side effects. She follows unit routine. She talks to her fiance and her father and is trying to figure out her living situation when she leaves here. MENTAL STATUS EXAMINATION: 24 year old woman, appears in fair grooming and hygiene. Maintains good eye contact. . Mood is depressed and affect constricted. Speech and thought process are goal directed. Reports hearing her mothers voice calling her name at night time. Denies visual hallucinations and paranoid ideations. Alert and oriented x 4. Denies suicidal or homicidal ideations. Insight and judgement are improving. ASSESSMENT Major depressive disorder recurrent severe without psychosis, PLAN: Will increase melatonin dose to 6mg po qhs. continue Lexapro
[2019-06-30] MEDS: IBUPROFEN 400 MG TAB PO PRN (17:49)
[2019-06-30] MEDS: MELATONIN 3 MG TABLET PO SCH (21:03)
[2019-07-01] MEDS: NICOTINE 21MG/24HR PATCH TRANSDERM SCH (09:26)
[2019-07-01] MEDS: HYDROCHLOROTHIAZIDE 25 MG TAB PO SCH (09:26)
[2019-07-01] MEDS: ESCITALOPRAM 10 MG TAB PO SCH (09:26)
--- NOTE | 2019-07-01 09:26 | P.PN ---
Progress Note - Text Interval history: The patient is found in the [facility] she follows me to an interview room. She reports her mood is still depressed. She states that suicidal thoughts continue to occur especially in the evening. She has been attending groups. She has been compliant with medication. The melatonin dose was increased. She states that her father and perez and another friend visited over the weekend. She is stressed that they need to find a place to live because they're only able to stay with her father temporarily. We spent some time discussing how she is grieving the loss of her mother. We discussed the patient's suicidal thoughts and tried to get her to look at those objectively. Mental status exam: The patient is alert she's just her own clothing hygiene grooming adequate. Speech is fluent spontaneous nonpressured. Eye contact is appropriate. She reports her mood is depressed she continues to have some suici arnol thoughts but she feels they are less strong. She is reporting no homicidal ideation intent or plan. She is reporting no auditory or visual hallucinations or any specific delusions. Results or evidence of psychosis. She does not appear hypomanic or manic. She is oriented to person place and date. She demonstrates no verbal or physical aggressiveness. Affect is constricted throughout the session. Impression/plan: Continued symptoms of depression/grief, continue Lexapro is written. We will monitor for safety and encourage full participation in the milieu. He requires continued psychiatric hospitalization.
[2019-07-01] MEDS: SYMBICORT 160-4.5 MCG INHALER INHALATION SCH ×2 (09:27→20:39)
[2019-07-01] MEDS: MELOXICAM 7.5 MG TAB PO PRN (15:13)
[2019-07-01] MEDS: MELATONIN 3 MG TABLET PO SCH (20:40)
[2019-07-01] MEDS: ALBUTEROL INHALER 60 PUFF/8 GM INHALER INHALATION PRN (20:42)
[2019-07-02] MEDS: HYDROCHLOROTHIAZIDE 25 MG TAB PO SCH (08:51)
[2019-07-02] MEDS: SYMBICORT 160-4.5 MCG INHALER INHALATION SCH ×2 (08:51→20:35)
[2019-07-02] MEDS: ESCITALOPRAM 10 MG TAB PO SCH (08:51)
[2019-07-02] MEDS: NICOTINE 21MG/24HR PATCH TRANSDERM SCH (08:52)
--- NOTE | 2019-07-02 11:04 | P.PN ---
Progress Note - Text Interval history: The patient is found in her room she follows me to an interview room. She indicates that her mood is improving. She states she slept better last night she feels more rested. She states that is her goal to attend all groups. She has been speaking with her fianc and he continues to be supportive. We reviewed her medications her questions were answered. She is hoping to follow up with [facility] upon discharge. She states that she had no suicidal thoughts last evening. Mental status exam: The patient is alert she is dressed in her own clothing hygiene grooming adequate. Speech is fluent spontaneous nonpressured. She indicates her mood is better affect is more euthymic. She feels safe she is reporting no homicidal ideation intent or plan. She reports no auditory or visual hallucinations or any specific delusions. She demonstrates no tangential thinking loose associations or flight of ideas she does not appear to be hypomanic or manic. She demonstrates no verbal or physical aggressiveness. She is oriented to person place and date. She is describing more future oriented thinking. Impression/plan: Improving symptoms of depression, continue Lexapro is written. We will anticipate discharging her tomorrow if she remains clinically stable. Social work will attempt to arrange a support meeting. Vital signs reviewed. She is encouraged to continue participating in the milieu.
[2019-07-02] MEDS: MELOXICAM 7.5 MG TAB PO PRN (14:47)
[2019-07-02] MEDS: MELATONIN 3 MG TABLET PO SCH (20:36)
[2019-07-03 07:29] VITALS: TEMP 97.8
[2019-07-03] MEDS: NICOTINE 21MG/24HR PATCH TRANSDERM SCH (08:43)
[2019-07-03] MEDS: HYDROCHLOROTHIAZIDE 25 MG TAB PO SCH (08:44)
[2019-07-03] MEDS: ESCITALOPRAM 10 MG TAB PO SCH (08:44)
[2019-07-03] MEDS: SYMBICORT 160-4.5 MCG INHALER INHALATION SCH (08:45)
--- NOTE | 2019-07-03 09:32 | P.DS ---
Providers Date of admission: 06/26/19 13:11 Expected date of discharge: 07/03/19 Attending physician: Piero Wheeler Consults: 06/26/19 13:18 Consult Physician Routine Consulting Provider: Shelly Kwan Consult Reason/Comments: H & P and medical care Do you want consulting provider notified?: Yes Primary care physician: Stated None - Discharge Diagnosis(es) (1) Major depressive disorder, recurrent severe without psychotic features Current Visit: Yes Status: Acute Priority: High Hospital Course: Brief summary of admission note: This patient is a 24-year-old single female who was admitted to the mental health unit for acute suicidal ideation. She presented stating her mother committed suicide 3 weeks ago. The patient had been involved in a verbal altercation with her mother earlier that morning and she was afraid she contributed to her mother's . The next day the patient attempted suicide by trying to kill herself the same way her mother did. She aborted the attempt. The patient described a long history of depression ever since the age of 14. She described being tearful having poor sleep low energy poor motivation. She felt anxiety was heightened. For full details please refer to the psychiatric evaluation dated 06/27/2019. He Summary of hospital course: The patient was admitted to the mental health unit voluntarily. We reviewed her presenting symptoms and treatment options. We decided to initiate Lexapro for depressive symptoms 10 mg daily. The patient was seen by internal medicine for routine history and physical exam. She was started on an antihypertensive medication as her blood pressure appeared to be elevated. The patient attended groups she demonstrated no agitated behavior. She reported a progressive improvement of symptoms while here on the mental health unit. She noted a resolution of any strong suicidal ideation. She continues to verbalize a desire to work with a therapist individually upon discharge. The patient has had supportive visits from her fianc and father. She plans to reside with her fianc with her father until her and her fianc find her own place. Mental status exam: The patient is an overweight female appearing her stated age. Hygiene grooming adequate. She has a nose and lip piercing she has visible tattoos. Eye contact is appropriate speech is fluent spontaneous nonpressured. She is reporting improvement of her mood her affect is pleasant and euthymic. She is reporting no acute suicidal ideation intent or plan. She reports no homicidal ideation intent or plan. She indicates she no longer feels hopeless. She is reporting no auditory or visual hallucinations or any specific delusions and there is no observed evidence of psychosis. She demonstrates no tangential thinking loose associations or flight of ideas she does not appear hypomanic or manic. She demonstrates no verbal or physical aggressiveness she demonstrates no involuntary repetitive movements. She is oriented to person place and date. She spontaneously describes future oriented thinking. Impressions 1. Major depressive disorder recurrent severe without psychosis, rule out stimulant use disorder, rule out acute stress disorder 2. Rule out cluster B traits Plan: The patient will be discharged mental health unit today she will reside with her father. The patient will continue on Lexapro 10 mg daily. She was prescribed hydrochlorothiazide for blood pressure elevation 25 mg daily. She will follow up with a primary care physician. Social work will arrange for outpatient mental health follow-up. The patient's instructed to abstain from any use of alcohol marijuana or any medications not prescribed to her as well as any illicit drugs. We discussed that these could provoke mood symptoms and elevated her safety risk. She does not feel she needs to participate in inpatient chemical dependency treatment. At this time there is no imminent safety risk she is appropriate for transition outpatient care. She is instructed to return to the hospital with any acute safety concerns. Patient Condition at Discharge: Stable Plan - Discharge Summary New Discharge Prescriptions: New Nicotine 21Mg/24Hr Patch [Habitrol] 1 patch TRANSDERM DAILY #14 patch Hydrochlorothiazide [Hydrodiuril] 25 mg PO DAILY #30 tab Escitalopram [Lexapro] 10 mg PO DAILY #30 tab Melatonin 6 mg PO HS tablet Budesonide-Formot 160-4.5 Mcg [Symbicort 160-4.5 Mcg Inhaler] 2 puff INHALATION RT-BID #1 puff Continue Albuterol Inhaler [Ventolin Hfa Inhaler] 1 - 2 puff INHALATION RT-Q6H PRN PRN Reason: Wheezing Discharge Medication List Albuterol Inhaler [Ventolin Hfa Inhaler] 1 - 2 puff INHALATION RT-Q6H PRN 06/25/19 [History] Budesonide-Formot 160-4.5 Mcg [Symbicort 160-4.5 Mcg Inhaler] 2 puff INHALATION RT-BID #1 puff 07/03/19 [Rx] Escitalopram [Lexapro] 10 mg PO DAILY #30 tab 07/03/19 [Rx] Hydrochlorothiazide [Hydrodiuril] 25 mg PO DAILY #30 tab 07/03/19 [Rx] Melatonin 6 mg PO HS tablet 07/03/19 [Rx] Nicotine 21Mg/24Hr Patch [Habitrol] 1 patch TRANSDERM DAILY #14 patch 07/03/19 [Rx] Follow up Appointment(s)/Referral(s): None,Stated [Primary Care Provider] - 1-2 days Patient Instructions/Handouts: How to Stop Smoking (DC), Depression (DC), Help Prevent Suicide (DC) Activity/Diet/Wound Care/Special Instructions: Activity and diet as tolerated. Avoid the use of street drugs and alcohol. Take all medications as prescribed. When you are in need of refills on your medications please contact your medical provider and/or outpatient psychiatrist to have this done. Please go to scheduled outpatient appointment for aftercare. If symptoms return or become worse call the crisis line at and/or go to the nearest emergency room for an evaluation.
[2019-07-03 10:06] VITALS: BP 128/73; PULSE 97; RESP 20
== END 2019-07-03 14:06 | disposition home or self-care (01) | DRG 885 ==
LOC: EC 12:33 → 3MHU 06-26 13:11
PROVIDERS: ADMIT Psychiatry & Neurology Psychiatry; ATTEND Psychiatry & Neurology Psychiatry
DX: F33.2 Major depressive disorder, recurrent severe without psychotic features (principal); R45.851 Suicidal ideations; E66.3 Overweight; F17.200 Nicotine dependence, unspecified, uncomplicated; F41.0 Panic disorder [episodic paroxysmal anxiety]; F90.9 Attention-deficit hyperactivity disorder, unspecified type; Z88.0 Allergy status to penicillin; Z88.2 Allergy status to sulfonamides; Z88.8 Allergy status to other drugs, medicaments and biological substances; Z91.018 Allergy to other foods; J45.909 Unspecified asthma, uncomplicated; Z65.3 Problems related to other legal circumstances; Z79.899 Other long term (current) drug therapy; Z81.8 Family history of other mental and behavioral disorders; Z82.5 Family history of asthma and other chronic lower respiratory diseases; Z91.5 Personal history of self-harm
CPT/HCPCS: 80053; 80061; 80306; 81001; 81025; 82075; 82248; 83036; 84443; 85025; 94640; 99285

== ENCOUNTER 2022-06-05 10:53 | Emergency (ER) | payer OTHER ==
[2022-06-05 11:11] VITALS: TEMP 98.2
[2022-06-05] MEDS ORDERED: DEXAMETHASONE SOD PHOSPHATE 10 MG/ML 1 ML VIAL IM STA (11:40)
[2022-06-05] MEDS ORDERED: ACETAMINOPHEN TAB 500 MG TAB PO STA (11:40)
--- NOTE | 2022-06-05 11:45 | ED ---
URI HPI - General Chief Complaint: Upper Respiratory Infection Stated Complaint: bronchitis Time Seen by Provider: 06/05/22 11:25 Source: patient, family, RN notes reviewed, old records reviewed Mode of arrival: ambulatory Limitations: no limitations - History of Present Illness Initial Comments: 27-year-old nontoxic-appearing female presents to the emergency room with cough that is productive green in color for the past 8 days. Patient states that she also has back pain. She states that she did feel feverish and chilled but did not take her temperature. She does have a history of asthma. She states that her boyfriend was sick last week with a sore throat that lasted one day. She has taken multiple at home Covid tests that are all negative. She denies cigarette smoking but she does vape. MD Complaint: cough -: week(s) (1) Severity scale (1-10): 7 Quality: aching Consistency: intermittent Improves With: nothing Context: sick contacts Associated Symptoms: fever, chills, cough, other (back pain) Treatments Prior to Arrival: none - Related Data Previous Rx's Medication Instructions Recorded Budesonide-Formot 160-4.5 Mcg 2 puff INHALATION RT-BID #1 puff 07/03/19 [Symbicort 160-4.5 Mcg Inhaler] Escitalopram [Lexapro] 10 mg PO DAILY #30 tab 07/03/19 Melatonin 6 mg PO HS tablet 07/03/19 Nicotine 21Mg/24Hr Patch [Habitrol] 1 patch TRANSDERM DAILY #14 patch 07/03/19 hydroCHLOROthiazide [Hydrodiuril] 25 mg PO DAILY #30 tab 07/03/19 Albuterol Inhaler [Ventolin Hfa 1 - 2 puff INHALATION RT-Q6H PRN 06/05/22 Inhaler] #1 each Azithromycin [Zithromax Z Pack] 1 tab PO DIRECTED #6 tab 06/05/22 Allergies Allergy/AdvReac Type Severity Reaction Status Date / Time amoxicillin Allergy Rash/Hives Verified 06/05/22 11:11 Penicillins Allergy Rash/Hives Verified 06/05/22 11:11 pineapple Allergy Anaphylaxis Verified 06/05/22 11:11 sulfamethoxazole Allergy Unknown Verified 06/05/22 11:11 [From Bactrim] trimethoprim [From Bactrim] Allergy Unknown Verified 06/05/22 11:11 diphenhydramine AdvReac Nausea Verified 06/05/22 11:11 [From Benadryl] Review of Systems ROS Statement: Those systems with pertinent positive or pertinent negative responses have been documented in the HPI. ROS Other: All systems not noted in ROS Statement are negative. Past Medical History Past Medical History: Asthma Additional Past Medical History / Comment(s): Trichomonas, History of Any Multi-Drug Resistant Organisms: MRSA Date of last positivie culture/infection: 09/30/17 MDRO Source:: Urine Past Surgical History: Adenoidectomy, Ear Surgery, Tonsillectomy Past Psychological History: ADD/ADHD, Anxiety, Depression Smoking Status: Former smoker, Vaper Past Alcohol Use History: Occasional Past Drug Use History: None Reported - Past Family History Mother Family Medical History: Asthma Additional Family Medical History / Comment(s): cholecystectomy Father Family Medical History: No Reported History Brother(s) Family Medical History: No Reported History Sister(s) Family Medical History: Unable to Obtain General Exam Limitations: no limitations General appearance: alert Head exam: Present: atraumatic, normocephalic Eye exam: Present: EOMI. Absent: scleral icterus, conjunctival injection ENT exam: Present: normal exam, normal oropharynx, mucous membranes moist Expanded Mouth exam: Present: tongue normal, tongue elevation. Absent: drooling, trismus, muffled voice Throat exam: normal inspection. negative: tonsillar erythema, tonsillar exudate Neck exam: Present: normal inspection, full ROM. Absent: tenderness, meningismus Respiratory exam: Present: normal lung sounds bilaterally. Absent: respiratory distress, wheezes, rales, rhonchi, stridor, accessory muscle use Cardiovascular Exam: Present: tachycardia GI/Abdominal exam: Present: soft. Absent: distended, tenderness Extremities exam: Present: normal inspection, normal capillary refill. Absent: pedal edema Back exam: Absent: CVA tenderness (R), CVA tenderness (L) Neurological exam: Present: alert, oriented X3 Psychiatric exam: Present: anxious Skin exam: Present: warm, dry, normal color. Absent: cyanosis, diaphoretic Course Vital Signs 06/05/22 06/05/22 06/05/22 11:08 12:17 12:20 Temperature 98.2 F Pulse Rate 112 H 108 H Respiratory 18 17 17 Rate Blood Pressure 126/83 128/82 O2 Sat by Pulse 98 95 Oximetry 06/05/22 13:05 Temperature Pulse Rate 99 Respiratory Rate Blood Pressure O2 Sat by Pulse Oximetry - Reevaluation(s) Reevaluation #1: 06/05/22 12:28 Repeat vitals show the patient remains tachycardic. Lungs sounds remain clear however patient states that she does feel dizzy and does have a history of anemia. Labs will be drawn for CBC and d-dimer. Time: 12:28 Medical Decision Making - Medical Decision Making Patient presents with 8 days of cough, no productive green in color. Denies any fevers but does state she felt chilled. X-rays negative for acute cardiopulmonary process. Oxygen saturation is 98% on room air and patient is currently afebrile. She has taken multiple at home coronavirus tests that are negative. She was exposed to her significant other who had a viral type illness. Due to patient's persistent tachycardia labs were drawn. White blood cell count 15 with a left shift. D-dimer is negative at 0.42. She will be treated with a Z-Vaughn and given an albuterol inhaler for her asthma she states she does not have one. She was directed to increase her fluid intake, take Tylenol and Motrin as needed for pain or fevers. She was directed to follow-up with her primary care doctor for continuation of care and management of her asthma. Patient and significant other are agreeable to this plan of care. All questions were answered. Case discussed with Dr. Valderrama - Lab Data Result diagrams: 06/05/22 12:38 06/05/22 12:38 Lab Results 06/05/22 06/05/22 06/05/22 Range/Units 12:38 12:38 12:38 WBC 15.2 H (3.8-10.6) k/uL RBC 4.93 (3.80-5.40) m/uL Hgb 12.8 (11.4-16.0) gm/dL Hct 40.0 (34.0-46.0) % MCV 81.0 (80.0-100.0) fL MCH 26.0 (25.0-35.0) pg MCHC 32.0 (31.0-37.0) g/dL RDW 14.9 (11.5-15.5) % Plt Count 354 (150-450) k/uL MPV 8.0 Neutrophils % 75 % Lymphocytes % 16 % Monocytes % 4 % Eosinophils % 3 % Basophils % 1 % Neutrophils # 11.5 H (1.3-7.7) k/uL Lymphocytes # 2.4 (1.0-4.8) k/uL Monocytes # 0.7 (0-1.0) k/uL Eosinophils # 0.4 (0-0.7) k/uL Basophils # 0.1 (0-0.2) k/uL D-Dimer 0.42 (<0.60) mg/L FEU Sodium 138 (137-145) mmol/L Potassium 4.1 (3.5-5.1) mmol/L Chloride 105 (98-107) mmol/L Carbon Dioxide 24 (22-30) mmol/L Anion Gap 9 mmol/L BUN 12 (7-17) mg/dL Creatinine 0.56 (0.52-1.04) mg/dL Est GFR (CKD-EPI)AfAm >90 (>60 ml/min/1.73 sqM) Est GFR (CKD-EPI)NonAf >90 (>60 ml/min/1.73 sqM) Glucose 127 H (74-99) mg/dL Calcium 9.2 (8.4-10.2) mg/dL Disposition Clinical Impression: URI (upper respiratory infection) Disposition: HOME SELF-CARE Condition: Good Instructions (If sedation given, give patient instructions): Upper Respiratory Infection (ED) Additional Instructions: Take antibiotics as prescribed. Tylenol and Motrin as needed for any pain or discomfort. Use your albuterol as needed. Follow-up with primary care doctor next week. Return to the emergency room with any new or concerning symptoms. Prescriptions: Albuterol Inhaler [Ventolin Hfa Inhaler] 1 - 2 puff INHALATION RT-Q6H PRN #1 each PRN Reason: Wheezing Azithromycin [Zithromax Z Pack] 1 tab PO DIRECTED #6 tab Is patient prescribed a controlled substance at d/c from ED?: No Referrals: Geo De Oliveira MD [Primary Care Provider] - 1-2 days Time of Disposition: 13:09
--- NOTE | 2022-06-05 11:57 | XR ---
EXAMINATION TYPE: XR chest 2V DATE OF EXAM: 06/05/2022 11:48 AM COMPARISON: Chest radiographs from 04/12/2018 TECHNIQUE: XR chest 2V Frontal and lateral views of the chest. CLINICAL INDICATION:Female, 27 years old with history of cough; FINDINGS: Lungs/Pleura: There is no evidence of pleural effusion, focal consolidation, or pneumothorax. Pulmonary vascularity: Unremarkable. Heart/mediastinum: Cardiomediastinal silhouette is unremarkable. Musculoskeletal: No acute osseous pathology. IMPRESSION: No acute cardiopulmonary disease/process.
[2022-06-05 12:20] VITALS: BP 128/82; RESP 17
[2022-06-05] MEDS ORDERED: IBUPROFEN 800 MG TAB PO STA (12:22)
[2022-06-05 12:46] LABS: Basophils # (A) 0.1 k/uL (0-0.2); Basophils % (A) 1 %; Eosinophils # (A) 0.4 k/uL (0-0.7); Eosinophils % (A) 3 %; HGB 12.8 gm/dL (11.4-16.0); Lymphocytes # (A) 2.4 k/uL (1.0-4.8); Lymphocytes % (A) 16 %; Monocytes # (A) 0.7 k/uL (0-1.0); Monocytes % (A) 4 %; Neutrophils # (A) 11.5 k/uL (1.3-7.7); Neutrophils % (A) 75 %; Platelet Count 354 k/uL (150-450); RBC 4.93 m/uL (3.80-5.40); RDW 14.9 % (11.5-15.5); WBC 15.2 k/uL (3.8-10.6)
[2022-06-05 12:56] LABS: African American GFR (CKD) >90 (>60 ml/min/1.73 sqM); Anion Gap 9 mmol/L; Blood Urea Nitrogen 12 mg/dL (7-17); Calcium 9.2 mg/dL (8.4-10.2); Carbon Dioxide 24 mmol/L (22-30); Chloride 105 mmol/L (98-107); Glucose 127 mg/dL (74-99); Non-African American GFR(CKD) >90 (>60 ml/min/1.73 sqM); Potassium 4.1 mmol/L (3.5-5.1); Sodium 138 mmol/L (137-145)
[2022-06-05 13:06] VITALS: PULSE 99
== END 2022-06-05 13:22 | disposition home or self-care (01) ==
LOC: EC 10:53
DX: J06.9 Acute upper respiratory infection, unspecified (principal); J45.909 Unspecified asthma, uncomplicated; Z88.0 Allergy status to penicillin; Z88.2 Allergy status to sulfonamides; Z88.8 Allergy status to other drugs, medicaments and biological substances
CPT/HCPCS: 36415; 85379; 80048; 85025; 71046; 99284; 96372; J1100